=== PATIENT | male | born 1980 | race Caucasian/White ===

== ENCOUNTER 2021-01-20 21:24 | Emergency (ER) | payer SELFPAY ==
[2021-01-20 21:45] VITALS: BP 145/93; PULSE 93; RESP 20; TEMP 38.7; O2SAT 97; BMI 28.1
--- NOTE | 2021-01-20 22:09 | XRR_ITS ---
PROCEDURE INFORMATION: Exam: XR Chest Exam date and time: 01/20/2021 10:09 PM Age: 40 years old Clinical indication: Cough and fever; Additional info: Fever, cough TECHNIQUE: Imaging protocol: XR of the chest. Views: 1 view. COMPARISON: No relevant prior studies available. FINDINGS: Lungs: Lungs are clear bilaterally. Pleural spaces: No pleural effusion. No pneumothorax. Heart/Mediastinum: The cardiac silhouette and mediastinal contours are unremarkable. Bones/joints: Unremarkable for age. XR/XR chest 1V portable [id number] IMPRESSION: No acute cardiopulmonary process.
[2021-01-20 22:51] VITALS: BP 131/94; PULSE 91; RESP 17; TEMP 38.7; O2SAT 97
[2021-01-20 22:59] LABS: Basophils % 0.3 %; Eosinophils % 0.5 %; Hematocrit 48.3 % (42.0-52.0); Hemoglobin 16.1 g/dL (11.7-16.6); Lymphocytes # 1.5 10^3/uL (0.8-4.8); Lymphocytes % 22.3 %; Mean Corpuscular HGB Conc 33.3 g/dL (30.0-36.0); Mean Corpuscular Hemoglobin 28.7 pg (28.0-34.0); Mean Corpuscular Volume 86.1 fL (80-94); Mean Platelet Volume 10.3 fL (7.4-10.4); Monocytes # 0.9 10^3/uL (0.2-0.9); Monocytes % 13.6 %; Neutrophils # 4.19 10^3/uL (1.8-7.7); Neutrophils % 63.1 %; Nucleated Red Blood Cells % 0 %; Platelet Count 236 10^3/cmm (130-400); Red Blood Count 5.61 10^6/uL (4.1-5.3); Red Cell Distribution Width 12.2 % (12.1-15.1); White Blood Count 6.6 10^3/uL (4.0-10.0)
[2021-01-20 23:25] LABS: Fibrinogen 427 mg/dL (174-498)
[2021-01-20 23:39] LABS: Alanine Aminotransferase 99 U/L (0-41); Albumin Level 4.3 g/dL (3.5-5.2); Alkaline Phosphatase 75 IU/L (40-130); Aspartate Amino Transferase 55 U/L (0-40); Blood Urea Nitrogen 12 mg/dL (6-20); C Reactive Protein 9.6 mg/L (0.0-4.9); Calcium 8.2 mg/dL (8.5-10.5); Carbon Dioxide 19 mmol/L (22-29); Chloride 103 mmol/L (98-107); Globulin 3.1 g/dL (1.3-4.6); Glomerular Filtration Rate 126.2 mL/min (90-130); Glucose 97 mg/dL (65-115); Osmolality Calculated 280 mOsm/kg (285-295); Sodium 135 mmol/L (136-145); Total Bilirubin 0.9 mg/dL (0.15-1.2); Total Protein 7.4 g/dL (6.6-8.7)
--- NOTE | 2021-01-20 23:41 | ED_ITS ---
HPI - Fever General: Chief Complaint: Fever Stated Complaint: SOB, MOIST COUGH Time Seen by Provider: 01/20/21 21:57 Source: patient, family, RN notes reviewed and old records reviewed Mode of arrival: ambulatory Limitations: no limitations History of Present Illness: HPI Narrative: 40-year-old male with no significant past medical history presents to the emergency department with complaints of a fever, cough, body aches, nasal congestion, sore throat. Symptoms have been ongoing for about 7 days. He does not feel like he is getting any better so he is here to be evaluated. He denies any sick contacts and denies any contact with anyone that has had Covid. He has not had his Covid vaccination. MD elicited complaint: fever, malaise and weakness Onset (ago): day(s) (7) Exacerbating factors: nothing Relieving factors: nothing Associated symptoms: Reports chills, cough, headache(s), myalgias, nasal congestion, nausea and short of breath; Deny abdominal pain, flank pain, chest pain, confusion, diarrhea, dysuria, extremity pain, night sweats, rash, rhinorrhea, sinus pain, stiffness, sore throat, vaginal discharge, vomiting or weight loss Treatments prior to arrival fever: none Review of Systems General: Reports: 10 or more systems reviewed and unremarkable except in HPI and below Const: Reports: chills; Denies: night sweats ENMT: Reports: nasal congestion; Denies: sinus pain Card: Denies: chest pain GI: Reports: nausea; Denies: abdominal pain, vomiting or diarrhea : Denies: flank pain or dysuria Musc: Denies: extremity pain Neuro: Reports: headache(s); Denies: confusion Physical Exam Const: COMMON NORMALS: no acute distress, average body habitus, patient oriented x3, no limitations, healthy appearing, alert and well nourished HENMT: COMMON NORMALS: normocephalic, atraumatic and moist oral mucous m embranes HEAD & SCALP: normocephalic and atraumatic Neck/C-Spine: COMMON NORMALS: no meningeal signs and no JVD Resp: COMMON NORMALS: normal respiratory effort, No retractions, No use of accessory muscles, clear to auscultation bilaterally and percussion normal AUSCULTATION: clear to auscultation bilaterally PERCUSSION: percussion normal Cardio: COMMON NORMALS: no JVD, regular rate, regular rhythm, S1 normal heart sound present, S2 normal heart sound present, No gallops present (Cardio), No clicks present (Cardio), No murmurs present (Cardio), No rub (Cardio) and Peripheral pulses 2+ throughout RATE: regular rate RHYTHM: regular rhythm HEART SOUNDS: S1 normal heart sound present and S2 normal heart sound present PERIPHERAL PULSES: Peripheral pulses 2+ throughout GI: COMMON NORMALS: Normal to inspection, nondistended, normoactive bowel sounds present, Soft to palpation, non-tender, No hepatosplenomegaly present, no masses and no bruits PALPATION: Yes Soft to palpation and Yes No hepatosplenomegaly present Extremity: COMMON NORMALS: normal to inspection, full ROM, capillary refill normal, no calf tenderness and no pedal edema Neuro: COMMON NORMALS: patient oriented x3 SENSORIUM/ORIENTATION: Yes alert MENINGEAL SIGNS: Yes no meningeal signs Skin: COMMON NORMALS: no rashes or lesions noted, no wounds, turgor normal, no jaundice, no petechiae and no mottling GENERAL SKIN EXAM: no rashes or lesions noted and turgor normal Course Reevaluation(s): Reevaluation #1: Discussed his lab and imaging findings with him. He tested positive for COVID-19. Labs otherwise unremarkable. CXR negative for infiltrate. He does not meet criteria for monoclonal antibody infusion. Will discharge him home on conservative measures and he is to self quarantine for at least 10 days from symptoms onset and at least 24 hours fever- free with no antipyretics. He voiced understanding and all questions answered. Time: 00:05 Vital Signs: Vital signs: Vital Signs Temperature 101.6 F H 01/20/21 22:51 Pulse Rate 90 01/21/21 00:16 Respiratory Rate 20 H 01/21/21 00:16 Blood Pressure 136/87 01/21/21 00:16 Pulse Oximetry 95 01/21/21 00:16 MDM - Fever MDM Narrative: Medical decision making narrative: 40 year old male who presents to the ED with covid symptoms including fever, cough, myalgias. He tested positive for COVID-19, however inflammatory markers only midly elevated and is not hypoxic or requiring oxygen. CXR negative. Does not meet criteria for monoclonal antibody infusion. He is discharged home on conservative measures. Medical Records: Attestation: I reviewed the patient's medical records. Lab Data: Attestation: I reviewed the patient's lab results. Labs: Lab Results 01/20/21 01/20/21 01/20/21 Range/Units 22:37 22:37 22:37 WBC 6.6 (4.0-10.0) 10^3/ uL RBC 5.61 H (4.1-5.3) 10^6/u L Hgb 16.1 (11.7-16.6) g/dL Hct 48.3 (42.0-52.0) % MCV 86.1 (80-94) fL MCH 28.7 (28.0-34.0) pg MCHC 33.3 (30.0-36.0) g/dL RDW 12.2 (12.1-15.1) % Plt Count 236 (130-400) 10^3/c mm MPV 10.3 (7.4-10.4) fL Neut % (Auto) 63.1 % Lymph % (Auto) 22.3 % [place] % (Auto) 13.6 % Eos % (Auto) 0.5 % Baso % (Auto) 0.3 % Neut # (Auto) 4.19 (1.8-7.7) 10^3/u L Lymph # (Auto) 1.5 (0.8-4.8) 10^3/u L [place] # (Auto) 0.9 (0.2-0.9) 10^3/u L Eos # (Auto) 0.0 (0.0-0.8) 10^3/u L Baso # (Auto) 0.0 (0.0-0.1) 10^3/u L Nucleated RBC % (a uto) 0 % Nucleated RBCs # 0.0 /100WBC Fibrinogen 427 (174-498) mg/dL Sodium 135 L (136-145) mmol/L Potassium 3.6 (3.5-5.1) mmol/L Chloride 103 (98-107) mmol/L Carbon Dioxide 19 L (22-29) mmol/L Anion Gap 16.6 (5-19) BUN 12 (6-20) mg/dL Creatinine 0.7 (0.7-1.2) mg/dL GFR Calculation 126.2 (90-130) mL/min Glucose 97 (65-115) mg/dL Calculated Osmolal ity 280 L (285-295) mOsm/k g Lactic Acid (0.5-2.2) mmol/L Calcium 8.2 L (8.5-10.5) mg/dL Total Bilirubin 0.9 (0.15-1.2) mg/dL AST 55 H (0-40) U/L ALT 99 H (0-41) U/L Alkaline Phosphata se 75 (40-130) IU/L C-Reactive Protein 9.6 H (0.0-4.9) mg/L Total Protein 7.4 (6.6-8.7) g/dL Albumin 4.3 (3.5-5.2) g/dL Globulin 3.1 (1.3-4.6) g/dL Procalcitonin 0.10 (0-0.5) ng/mL SARS-CoV-2 Ag (Rap id) (Negative) 01/20/21 01/20/21 Range/Units 22:37 22:42 WBC (4.0-10.0) 10^3/ uL RBC (4.1-5.3) 10^6/u L Hgb (11.7-16.6) g/dL Hct (42.0-52.0) % MCV (80-94) fL MCH (28.0-34.0) pg MCHC (30.0-36.0) g/dL RDW (12.1-15.1) % Plt Count (130-400) 10^3/c mm MPV (7.4-10.4) fL Neut % (Auto) % Lymph % (Auto) % [place] % (Auto) % Eos % (Auto) % Baso % (Auto) % Neut # (Auto) (1.8-7.7) 10^3/u L Lymph # (Auto) (0.8-4.8) 10^3/u L [place] # (Auto) (0.2-0.9) 10^3/u L Eos # (Auto) (0.0-0.8) 10^3/u L Baso # (Auto) (0.0-0.1) 10^3/u L Nucleated RBC % (a uto) % Nucleated RBCs # /100WBC Fibrinogen (174-498) mg/dL Sodium (136-145) mmol/L Potassium (3.5-5.1) mmol/L Chloride (98-107) mmol/L Carbon Dioxide (22-29) mmol/L Anion Gap (5-19) BUN (6-20) mg/dL Creatinine (0.7-1.2) mg/dL GFR Calculation (90-130) mL/min Glucose (65-115) mg/dL Calculated Osmolal ity (285-295) mOsm/k g Lactic Acid 1.0 (0.5-2.2) mmol/L Calcium (8.5-10.5) mg/dL Total Bilirubin (0.15-1.2) mg/dL AST (0-40) U/L ALT (0-41) U/L Alkaline Phosphata se (40-130) IU/L C-Reactive Protein (0.0-4.9) mg/L Total Protein (6.6-8.7) g/dL Albumin (3.5-5.2) g/dL Globulin (1.3-4.6) g/dL Procalcitonin (0-0.5) ng/mL SARS-CoV-2 Ag (Rap id) Positive H (Negative) Imaging Data^: CXR: Attestation: I personally reviewed and interpreted this imaging study as follows: Radiologist's impression: [address] [id number] ReportSigned Patient: Facundo Cohen #: [id number]: [id number]#:[id number]/Sex: 40 / MADM Date: 01/20/21Loc: ERRoom/Bed:Attending Dr: Ordering Provider/Ordering MD: Melanie Ruiz MD, [facility] Date of Service: 01/20/21 Procedure(s): XR chest 1V portable [id number] Accession Number(s): [id number] Report Number: [id number] PROCEDURE INFORMATION: Exam: XR Chest Exam date and time: 01/20/2021 10:09 PM Age: 40 years old Clinical indication: Cough and fever; Additional info: Fever, cough TECHNIQUE: Imaging protocol: XR of the chest. Views: 1 view. COMPARISON: No relevant prior studies available. FINDINGS: Lungs: Lungs are clear bilaterally. Pleural spaces: No pleural effusion. No pneumothorax. Heart/Mediastinum: The cardiac silhouette and mediastinal contours are unremarkable. Bones/joints: Unremarkable for age. XR/XR chest 1V portable [id number] IMPRESSION: No acute cardiopulmonary process. Dictated By:Ksenia Morrell MDSigned By:Ksenia Morrell MDSigned Date/Time:01/20/21 8864 Discharge Plan Discharge Patient Disposition: Home Clinical Impression: COVID-19 Condition: Stable Discharge Orders: Discharge ED (Routine); Ordered 01/21/21 Ordered By: Melanie Ruiz Discharge Diet: Usual diet Discharge Activity: Increase activity as tolerated Activity Restrictions/Additional Instructions: Return for any new or worsening symptoms. Follow-up with your primary care provider within 3 days via telemedicine. Monitor your oxygen saturation using the pulse oximeter that was sent with you. If your oxygen levels drop below 90% and stay below 90% then you need to return to be evaluated. Drink plenty of fluids to keep well-hydrated. You need to self isolate for 10 days from when your symptoms started and be fever free for at least 24 hours without taking medicines for fever. Coding Level of Care Code ED Cushion Builder for Faustino Guzmán Exam Comprehensive
[2021-01-20 23:52] LABS: Anion Gap 16.6 (5-19); Potassium 3.6 mmol/L (3.5-5.1)
[2021-01-20 23:56] LABS: SARS Covid-2 Antigen Positive (Negative)
[2021-01-21 00:16] VITALS: BP 136/87; PULSE 90; RESP 20; O2SAT 95
== END 2021-01-21 00:17 | disposition home or self-care (01) ==
PROVIDERS: Emergency Provider Family Medicine
DX: U07.1 COVID-19 (principal)
CPT/HCPCS: 71045; 80053; 83605; 84145; 85025; 85384; 86140; 87426; 99283

== ENCOUNTER 2021-01-25 15:07 | Emergency (ER) | payer SELFPAY ==
--- NOTE | 2021-01-25 15:36 | XRR_ITS ---
PROCEDURE INFORMATION: Exam: XR Chest Exam date and time: 01/25/2021 3:36 PM Age: 40 years old Clinical indication: Shortness of breath; Additional info: Covid, short of breath TECHNIQUE: Imaging protocol: XR of the chest. Views: 1 view. COMPARISON: CR (CHEST, ) 01/20/2021 10:52 PM FINDINGS: Lungs: Patchy poorly defined airspace opacities in the lateral left lung. Decreased lung volumes. Mildly conspicuous pulmonary interstitium. Pleural spaces: Unremarkable. No pleural effusion. No pneumothorax. Heart/Mediastinum: Unremarkable. No cardiomegaly. Bones/joints: Unremarkable. XR/XR chest 1V portable [id number] IMPRESSION: Patchy airspace disease primarily peripheral aspect of the left lung consistent with atypical pneumonia such as COVID-19 pneumonia.
[2021-01-25 15:50] VITALS: BP 125/88; PULSE 130; RESP 17; TEMP 39.3; O2SAT 96; BMI 29.0
[2021-01-25 21:35] LABS: Basophils % 0.2 %; Hematocrit 50.8 % (42.0-52.0); Hemoglobin 17.4 g/dL (11.7-16.6); Lymphocytes # 1.3 10^3/uL (0.8-4.8); Lymphocytes % 16.4 %; Mean Corpuscular HGB Conc 34.3 g/dL (30.0-36.0); Mean Corpuscular Hemoglobin 28.5 pg (28.0-34.0); Mean Corpuscular Volume 83.1 fL (80-94); Mean Platelet Volume 10.2 fL (7.4-10.4); Monocytes # 0.6 10^3/uL (0.2-0.9); Monocytes % 7.1 %; Neutrophils # 6.17 10^3/uL (1.8-7.7); Neutrophils % 76.1 %; Nucleated Red Blood Cells % 0 %; Platelet Count 175 10^3/cmm (130-400); Red Blood Count 6.11 10^6/uL (4.1-5.3); Red Cell Distribution Width 11.9 % (12.1-15.1); White Blood Count 8.1 10^3/uL (4.0-10.0)
[2021-01-25] MEDS: ondansetron 2 mg/ML SDV 2 mL 4 MG IVP (21:38)
[2021-01-25] MEDS: sodium chloride 0.9% 1,000 ML 999 ML IV (21:39)
[2021-01-25] MEDS: acetaminophen 500 mg Tablet 1000 MG PO (21:39)
[2021-01-25 22:18] LABS: Alanine Aminotransferase 59 U/L (0-41); Albumin Level 4.2 g/dL (3.5-5.2); Alkaline Phosphatase 71 IU/L (40-130); Anion Gap 20.7 (5-19); Aspartate Amino Transferase 54 U/L (0-40); Blood Urea Nitrogen 16 mg/dL (6-20); Calcium 8.5 mg/dL (8.5-10.5); Carbon Dioxide 19 mmol/L (22-29); Chloride 99 mmol/L (98-107); Globulin 3.6 g/dL (1.3-4.6); Glomerular Filtration Rate 126.2 mL/min (90-130); Glucose 99 mg/dL (65-115); Lipase 42 U/L (13-60); Osmolality Calculated 281 mOsm/kg (285-295); Potassium 3.7 mmol/L (3.5-5.1); Sodium 135 mmol/L (136-145); Total Bilirubin 0.8 mg/dL (0.15-1.2); Total Protein 7.8 g/dL (6.6-8.7)
[2021-01-25 22:21] LABS: Lactic Sepsis W/Reflex 1.8 mmol/L (0.5-2.2)
[2021-01-25 23:29] LABS: Urine Appearance Clear (CLEAR); Urine Color Yellow (Yellow); pH Urine 5 (5-7)
[2021-01-25 23:30] LABS: Add Urine Microscopic? YES; Bilirubin Urine Neg (Negative); Blood Urine 3+ (Negative); Glucose Urine UA Norm (Normal); Ketones Urine 2+ (Negative); Leukocyte Esterase Urine Negative (Negative); Nitrate Urine Negative (Negative); Protein Urine 3+ (Negative); Urobilinogen Urine Norm (Negative)
[2021-01-25 23:36] LABS: Add Urine Culture? Yes; Bacteria Urine 2+ /hpf; Hyaline Casts Urine 0-4 /lpf; Mucus Urine 3+ /hpf; RBC Urine 50-80 /hpf (0-2); Squamous Epithelial Cell Urine 0-4 /hpf (0-5); WBC Urine 0-4 /hpf (0-5)
--- NOTE | 2021-01-25 23:41 | CTR_ITS ---
PROCEDURE INFORMATION: Exam: CT Abdomen And Pelvis With Contrast Exam date and time: 01/25/2021 11:41 PM Age: 40 years old Clinical indication: Nausea and vomiting; Abdominal pain; Generalized; Patient HX: Abd pain with n/v/d. ; Additional info: Hematuria TECHNIQUE: Imaging protocol: Computed tomography of the abdomen and pelvis with contrast. Radiation optimization: All CT scans at this facility use at least one of these dose optimization techniques: automated exposure control; mA and/or kV adjustment per patient size (includes targeted exams where dose is matched to clinical indication); or iterative reconstruction. Contrast material: OMNI 300; Contrast volume: 95 ml; Contrast route: INTRAVENOUS (IV); COMPARISON: CR (CHEST, ) 01/25/2021 4:53 PM RADIATION DOSE METRICS: Total DLP (mGy-cm): 1648.11 FINDINGS: Lungs: Hazy bilateral pulmonary opacities which are consistent with COVID-19. Liver: Liver is normal. Gallbladder and bile ducts: Gallbladder is normal. Pancreas: Pancreas is normal. Spleen: Spleen is normal. Adrenal glands: Adrenals are normal. Kidneys and ureters: There is a focus of decreased attenuation in the left renal cortex which is suspicious for pyelonephritis. 2 mm nonobstructing left renal pelvis stone. Stomach and bowel: Unremarkable. No obstruction. No mucosal thickening. Appendix: No evidence of appendicitis. Intraperitoneal space: Unremarkable. No free air. No significant fluid collection. Vasculature: Unremarkable. No abdominal aortic aneurysm. Lymph nodes: Unremarkable. No enlarged lymph nodes. Urinary bladder: Unremarkable as visualized. Reproductive: Unremarkable as visualized. Bones/joints: Unremarkable. No acute fracture. Soft tissues: Unremarkable. CT/CT abdomen pelvis w con* [id number] IMPRESSION: 1. Hazy bilateral pulmonary opacities which are consistent with COVID-19. 2. There is a focus of decreased attenuation in the left renal cortex which is suspicious for pyelonephritis. COMMENTS: Consistent with the [employer]'s Incidental Findings Committee white paper (J Am Efren Radiol 2018): Any incidental renal lesion less than 1 cm or classified as too small to characterize, or any incidental cystic renal lesion characterized as simple-appearing, is likely benign. No follow-up imaging is recommended for these lesions per consensus recommendations based on imaging criteria. Radiation Dose CTDIVOL = (mGy): DLP = 1648.11 (mGy-cm)
[2021-01-25] MEDS: dexamethasone 10 mg/mL INJ 6 MG IVP (23:52)
[2021-01-25] MEDS: azithromycin 250 mg Tablet 500 MG PO (23:53)
--- NOTE | 2021-01-26 | ED_ITS ---
Documented by User: Henrry Paulino MD 01/26/21 11:07 HPI - Nausea/Vomiting/Diarrhea General: Chief complaint: Nausea/Vomiting/Diarrhea Stated complaint: COVID +: N/V/D, NO INTAKE X 2 DAYS Time Seen by Provider: 01/25/21 20:59 History of Present Illness: HPI Narrative: The patient is a 40-year-old male who comes to the ER complaining of nausea and vomiting and diarrhea for the past 5 days. He was diagnosed with Covid on the . He says he has not been keeping anything down for at least 2 days. Admits mild shortness of breath but no other Covid symptoms at this time. His worst complaint is the vomiting and dehydration. Temperature 102.7 in the ED. Heart rate 130. MD elicited complaint: nausea, vomiting and abdominal pain Associated nausea: Yes Associated symtoms: Reports fatigue and nausea; Denies anxiety, change in vision, chest pain, dizziness, headache(s) or palpitations Review of Systems General: Reports: 10 or more systems reviewed and unremarkable except in HPI and below Const: Reports: fever(s) and fatigue Eyes: Denies: change in vision, blurry vision or eye redness ENMT: Denies: throat pain, swelling of lips/tongue, ear or mastoid pain or nasal congestion Card: Denies: chest pain, palpitations, irregular heart rhythm, edema, dyspnea on exertion or orthopnea Resp: Denies: dyspnea, productive cough or non-productive cough GI: Reports: abdominal pain, nausea and vomiting; Denies: diarrhea or GI cramping : Denies: flank pain, urinary frequency or urinary urgency Musc: Denies: neck pain, back pain, extremity pain, joint pain, joint redness, limited range of motion or muscle weakness Skin/Breast: Denies: rash, pruritus, erythema, skin pain or skin tenderness Neuro: Denies: headache(s), numbness in extremities, weakness in extremities, sensory changes, difficulty walking, dizziness, confusion or Slurred speech present Psych: Denies: anxiety or depression Endo: Denies: polyuria All/Imm: Denies: urticaria, throat swelling or tongue swelling Physical Exam Const: COMMON NORMALS: patient oriented x3 and alert GENERAL APPEARANCE: well kempt and other (Dehydrated, tachycardic, febrile) ORIENTATION/CONSCIOUSNESS: Yes oriented to person, Yes oriented to place and Yes oriented to time HENMT: COMMON NORMALS: normocephalic, external ears normal and Normal external nose present HEAD & SCALP: normal to inspection and normocephalic NOSE: Normal external nose present EXTERNAL EAR: Yes external ears normal MOUTH: Normal oral and palatal mucosa present THROAT: posterior oropharynx normal Eye: COMMON NORMALS: Equal, round and reactive pupils present and EOMs intact bilaterally GENERAL EYE: appearance normal, both eyes and all related structures PUPIL: Yes Equal, round and reactive pupils present Neck/C-Spine: COMMON NORMALS: full ROM, no lymphadenopathy, no meningeal signs and no JVD GENERAL: Yes normal visual inspection Lymph: LYMPHATIC: no lymphadenopathy noted Chest: COMMONS NORMALS: normal inspection of the chest and normal palpation of entire chest wall Resp: COMMON NORMALS: normal respiratory effort, No retractions, No use of accessory muscles, clear to auscultation bilaterally and percussion normal EFFORT & INSPECTION: Yes able to speak in complete sentences AUSCULTATION: clear to auscultation bilaterally PERCUSSION: percussion normal Cardio: COMMON NORMALS: no JVD, regular rhythm, S1 normal heart sound present, S2 normal heart sound present and Peripheral pulses 2+ throughout RATE: tachycardic RHYTHM: regular rhythm HEART SOUNDS: S1 normal heart sound present and S2 normal heart sound present PERIPHERAL PULSES: Peripheral pulses 2+ throughout GI: COMMON NORMALS: Normal to inspection, nondistended, normoactive bowel sounds present, Soft to palpation and no masses INSPECTION: Yes normal to inspection PALPATION: Yes Soft to palpation OTHER: Mild diffuse abdominal tenderness. No rebound tenderness. Possibly muscular from vomiting the past couple days however unknown. : COMMON NORMALS: Yes no CVA tenderness BLADDER/KIDNEY EXAM: Yes no CVA tenderness Back/Pelvis: COMMON NORMALS: no CVA tenderness, thoracic and lumbar spine normal to inspection, no thoracic nor lumbar tenderness and thoraco-lumbar ROM normal Extremity: COMMON NORMALS: normal to inspection, full ROM, capillary refill normal, no joint enlargement and no pedal edema GENERAL: Yes normal exam except as noted Neuro: COMMON NORMALS: patient oriented x3, CN's II-XII intact bilaterally, moves all extremities, no focal motor deficits, no sensory deficits noted and gait normal SENSORIUM/ORIENTATION: Yes alert, Yes oriented to person, Yes oriented to place and Yes oriented to time MENINGEAL SIGNS: Yes no meningeal signs Psych: COMMON NORMALS: mental status grossly normal, Normal thought process present, cooperative, normal affect and speech normal APPEARANCE: Yes well kempt ATTITUDE: Yes calm SPEECH: Yes normal speech THOUGHT PROCESS: Normal thought process present Skin: COMMON NORMALS: no rashes or lesions noted GENERAL SKIN EXAM: no rashes or lesions noted Course Vital Signs: Vital signs: Vital Signs Temperature 99.2 F 01/26/21 02:57 Pulse Rate 72 01/26/21 02:57 Respiratory Rate 18 01/26/21 02:57 Blood Pressure 118/73 01/26/21 02:57 Pulse Oximetry 97 01/26/21 02:57 MDM - Nausea/Vomiting/Diarrhea MDM Narrative: Medical decision making narrative: The patient is a 40-year-old male who comes to the ER complaining of nausea and vomiting significantly over the past couple days. He was diagnosed with Covid on the . He also complains of abdominal pain and mild shortness of breath. He is satting well on room air and from a respiratory perspective he is doing quite well. Chest x-ray does show Covid pneumonia. He has not had steroids or antibiotics so he was given azithromycin, and dexamethasone in the ED as well as 2 L IV fluids, and Zofran, and Tylenol. His symptoms dramatically improved after hydration. Lab Data: Labs: Lab Results 01/25/21 01/25/21 01/25/21 Range/Units 21:25 21:25 21:25 WBC 8.1 (4.0-10.0) 10^3/ uL RBC 6.11 H (4.1-5.3) 10^6/u L Hgb 17.4 H (11.7-16.6) g/dL Hct 50.8 (42.0-52.0) % MCV 83.1 (80-94) fL MCH 28.5 (28.0-34.0) pg MCHC 34.3 (30.0-36.0) g/dL RDW 11.9 L (12.1-15.1) % Plt Count 175 (130-400) 10^3/c mm MPV 10.2 (7.4-10.4) fL Neut % (Auto) 76.1 % Lymph % (Auto) 16.4 % Ponce % (Auto) 7.1 % Eos % (Auto) 0.0 % Baso % (Auto) 0.2 % Neut # (Auto) 6.17 (1.8-7.7) 10^3/u L Lymph # (Auto) 1.3 (0.8-4.8) 10^3/u L Ponce # (Auto) 0.6 (0.2-0.9) 10^3/u L Eos # (Auto) 0.0 (0.0-0.8) 10^3/u L Baso # (Auto) 0.0 (0.0-0.1) 10^3/u L Nucleated RBC % (a uto) 0 % Nucleated RBCs # 0.0 /100WBC Sodium 135 L (136-145) mmol/L Potassium 3.7 (3.5-5.1) mmol/L Chloride 99 (98-107) mmol/L Carbon Dioxide 19 L (22-29) mmol/L Anion Gap 20.7 H (5-19) BUN 16 (6-20) mg/dL Creatinine 0.7 (0.7-1.2) mg/dL GFR Calculation 126.2 (90-130) mL/min Glucose 99 (65-115) mg/dL Calculated Osmolal ity 281 L (285-295) mOsm/k g Lactic Acid (0.5-2.2) mmol/L Calcium 8.5 (8.5-10.5) mg/dL Total Bilirubin 0.8 (0.15-1.2) mg/dL AST 54 H (0-40) U/L ALT 59 H (0-41) U/L Alkaline Phosphata se 71 (40-130) IU/L Total Protein 7.8 (6.6-8.7) g/dL Albumin 4.2 (3.5-5.2) g/dL Globulin 3.6 (1.3-4.6) g/dL Lipase 42 (13-60) U/L Urine Color (Yellow) Urine Appearance (CLEAR) Urine pH (5-7) Ur Specific Gravit y (1.005-1.030) Urine Protein (Negative) Urine Glucose (UA) (Normal) Urine Ketones (Negative) Urine Blood (Negative) Urine Nitrate (Negative) Urine Bilirubin (Negative) Urine Urobilinogen (Negative) mg/dL Ur Leukocyte Celia ase (Negative) Urine RBC (0-2) /hpf Urine WBC (0-5) /hpf Ur Squamous Epith Cells (0-5) /hpf Amorphous Sediment Urine Bacteria (NONE) /hpf Hyaline Casts /lpf Urine Mucus /hpf 01/25/21 01/25/21 Range/Units 21:35 23:15 WBC (4.0-10.0) 10^3/ uL RBC (4.1-5.3) 10^6/u L Hgb (11.7-16.6) g/dL Hct (42.0-52.0) % MCV (80-94) fL MCH (28.0-34.0) pg MCHC (30.0-36.0) g/dL RDW (12.1-15.1) % Plt Count (130-400) 10^3/c mm MPV (7.4-10.4) fL Neut % (Auto) % Lymph % (Auto) % Ponce % (Auto) % Eos % (Auto) % Baso % (Auto) % Neut # (Auto) (1.8-7.7) 10^3/u L Lymph # (Auto) (0.8-4.8) 10^3/u L Ponce # (Auto) (0.2-0.9) 10^3/u L Eos # (Auto) (0.0-0.8) 10^3/u L Baso # (Auto) (0.0-0.1) 10^3/u L Nucleated RBC % (a uto) % Nucleated RBCs # /100WBC Sodium (136-145) mmol/L Potassium (3.5-5.1) mmol/L Chloride (98-107) mmol/L Carbon Dioxide (22-29) mmol/L Anion Gap (5-19) BUN (6-20) mg/dL Creatinine (0.7-1.2) mg/dL GFR Calculation (90-130) mL/min Glucose (65-115) mg/dL Calculated Osmolal ity (285-295) mOsm/k g Lactic Acid 1.8 (0.5-2.2) mmol/L Calcium (8.5-10.5) mg/dL Total Bilirubin (0.15-1.2) mg/dL AST (0-40) U/L ALT (0-41) U/L Alkaline Phosphata se (40-130) IU/L Total Protein (6.6-8.7) g/dL Albumin (3.5-5.2) g/dL Globulin (1.3-4.6) g/dL Lipase (13-60) U/L Urine Color Yellow (Yellow) Urine Appearance Clear (CLEAR) Urine pH 5 (5-7) Ur Specific Gravit y 1.020 (1.005-1.030) Urine Protein 3+ H (Negative) Urine Glucose (UA) Norm (Normal) Urine Ketones 2+ H (Negative) Urine Blood 3+ H (Negative) Urine Nitrate Negative (Negative) Urine Bilirubin Neg (Negative) Urine Urobilinogen Norm (Negative) mg/dL Ur Leukocyte Celia ase Negative (Negative) Urine RBC 50-80 H (0-2) /hpf Urine WBC 0-4 H (0-5) /hpf Ur Squamous Epith Cells 0-4 H (0-5) /hpf Amorphous Sediment Not Reportable Urine Bacteria 2+ H (NONE) /hpf Hyaline Casts 0-4 H /lpf Urine Mucus 3+ /hpf Discharge Plan Discharge Patient Disposition: Home Clinical Impression: COVID-19, Gastroenteritis Condition: Stable Prescriptions: New azithromycin 250 mg tablet 250 mg PO DAILY 4 Days Qty: 4 RF: 0 Zofran 4 mg tablet 4 mg PO Q8H PRN (Reason: Nausea And Vomiting) 5 Days Qty: 15 RF: 0 Medrol (Timo) 4 mg tablets,dose pack See Rx Instructions .ROUTE .COMPLEX Qty: 21 RF: 0 albuterol sulfate 90 mcg/actuation HFA aerosol inhaler 2 inh inhalation Q6H PRN (Reason: shortness of breath or wheezing) 30 Days RF: 0 No Action Vicks NyQuil 12.3-86-72-1000 mg Packet See Rx Instructions .ROUTE .COMPLEX RF: 0 Tylenol Extra Strength 500 mg Tablet 500 - 1,000 mg PO Q6H PRN (Reason: PAIN/FEVER) RF: 0 Mucinex 1,200 mg Tablet Extended Release 12hr 1,200 mg PO BID RF: 0 Discharge Orders: Discharge ED (Routine); Ordered 01/26/21 Ordered By: Carlitos Lopez Discharge Diet: Advance as tolerated Patient Instructions: Gastroenteritis (ED), Opioid Safety, Upper Respiratory Infection - Adult Activity Restrictions/Additional Instructions: You have been suffering from Covid and have had significant nausea and vomiting over the past couple days. We have given you IV fluids and you have improved a good amount. Please use the Zofran to help with your nausea and drink lots of fluids. Also by pulse oximeter at [facility] and monitor your oxygen levels frequently and at anytime you are feeling short of breath. If it dips to 90% please return to the ER immediately. Also return to the ER with any worsening or worrisome symptoms or if your fever does not go away. Follow-up with a primary care physician in a couple days to monitor improvement of your symptoms. Coding Level of Care Code ED Stitch Bonding Machine Drawer In for Chg Fwd Exam Comprehensive Documented by User: Carlitos Lopez, 01/26/21 07:05 HPI - Nausea/Vomiting/Diarrhea General: Chief complaint: Nausea/Vomiting/Diarrhea Stated complaint: COVID +: N/V/D, NO INTAKE X 2 DAYS Time Seen by Provider: 01/25/21 20:59 Course Vital Signs: Vital signs: Vital Signs Temperature 99.2 F 01/26/21 02:57 Pulse Rate 72 01/26/21 02:57 Respiratory Rate 18 01/26/21 02:57 Blood Pressure 118/73 01/26/21 02:57 Pulse Oximetry 97 01/26/21 02:57 MDM - Nausea/Vomiting/Diarrhea MDM Narrative: Medical decision making narrative: 40-year-old male with COVID- 19 checked out to me by Dr. West at shift change. This gentleman has normal vitals. He looks much improved after fluid bolus he is feeling better as well. He did have hematuria on urinalysis, without evidence of infection. There is some concern for pyelonephritis of the left kidney on CT scanning. No evidence of bacterial infection though. Will allow patient home for symptomatic treatment of COVID-19. Lab Data: Labs: Lab Results 01/25/21 01/25/21 01/25/21 Range/Units 21:25 21:25 21:25 WBC 8.1 (4.0-10.0) 10^3/ uL RBC 6.11 H (4.1-5.3) 10^6/u L Hgb 17.4 H (11.7-16.6) g/dL Hct 50.8 (42.0-52.0) % MCV 83.1 (80-94) fL MCH 28.5 (28.0-34.0) pg MCHC 34.3 (30.0-36.0) g/dL RDW 11.9 L (12.1-15.1) % Plt Count 175 (130-400) 10^3/c mm MPV 10.2 (7.4-10.4) fL Neut % (Auto) 76.1 % Lymph % (Auto) 16.4 % Ponce % (Auto) 7.1 % Eos % (Auto) 0.0 % Baso % (Auto) 0.2 % Neut # (Auto) 6.17 (1.8-7.7) 10^3/u L Lymph # (Auto) 1.3 (0.8-4.8) 10^3/u L Ponce # (Auto) 0.6 (0.2-0.9) 10^3/u L Eos # (Auto) 0.0 (0.0-0.8) 10^3/u L Baso # (Auto) 0.0 (0.0-0.1) 10^3/u L Nucleated RBC % (a uto) 0 % Nucleated RBCs # 0.0 /100WBC Sodium 135 L (136-145) mmol/L Potassium 3.7 (3.5-5.1) mmol/L Chloride 99 (98-107) mmol/L Carbon Dioxide 19 L (22-29) mmol/L Anion Gap 20.7 H (5-19) BUN 16 (6-20) mg/dL Creatinine 0.7 (0.7-1.2) mg/dL GFR Calculation 126.2 (90-130) mL/min Glucose 99 (65-115) mg/dL Calculated Osmolal ity 281 L (285-295) mOsm/k g Lactic Acid (0.5-2.2) mmol/L Calcium 8.5 (8.5-10.5) mg/dL Total Bilirubin 0.8 (0.15-1.2) mg/dL AST 54 H (0-40) U/L ALT 59 H (0-41) U/L Alkaline Phosphata se 71 (40-130) IU/L Total Protein 7.8 (6.6-8.7) g/dL Albumin 4.2 (3.5-5.2) g/dL Globulin 3.6 (1.3-4.6) g/dL Lipase 42 (13-60) U/L Urine Color (Yellow) Urine Appearance (CLEAR) Urine pH (5-7) Ur Specific Gravit y (1.005-1.030) Urine Protein (Negative) Urine Glucose (UA) (Normal) Urine Ketones (Negative) Urine Blood (Negative) Urine Nitrate (Negative) Urine Bilirubin (Negative) Urine Urobilinogen (Negative) mg/dL Ur Leukocyte Celia ase (Negative) Urine RBC (0-2) /hpf Urine WBC (0-5) /hpf Ur Squamous Epith Cells (0-5) /hpf Amorphous Sediment Urine Bacteria (NONE) /hpf Hyaline Casts /lpf Urine Mucus /hpf 01/25/21 01/25/21 Range/Units 21:35 23:15 WBC (4.0-10.0) 10^3/ uL RBC (4.1-5.3) 10^6/u L Hgb (11.7-16.6) g/dL Hct (42.0-52.0) % MCV (80-94) fL MCH (28.0-34.0) pg MCHC (30.0-36.0) g/dL RDW (12.1-15.1) % Plt Count (130-400) 10^3/c mm MPV (7.4-10.4) fL Neut % (Auto) % Lymph % (Auto) % Ponce % (Auto) % Eos % (Auto) % Baso % (Auto) % Neut # (Auto) (1.8-7.7) 10^3/u L Lymph # (Auto) (0.8-4.8) 10^3/u L Ponce # (Auto) (0.2-0.9) 10^3/u L Eos # (Auto) (0.0-0.8) 10^3/u L Baso # (Auto) (0.0-0.1) 10^3/u L Nucleated RBC % (a uto) % Nucleated RBCs # /100WBC Sodium (136-145) mmol/L Potassium (3.5-5.1) mmol/L Chloride (98-107) mmol/L Carbon Dioxide (22-29) mmol/L Anion Gap (5-19) BUN (6-20) mg/dL Creatinine (0.7-1.2) mg/dL GFR Calculation (90-130) mL/min Glucose (65-115) mg/dL Calculated Osmolal ity (285-295) mOsm/k g Lactic Acid 1.8 (0.5-2.2) mmol/L Calcium (8.5-10.5) mg/dL Total Bilirubin (0.15-1.2) mg/dL AST (0-40) U/L ALT (0-41) U/L Alkaline Phosphata se (40-130) IU/L Total Protein (6.6-8.7) g/dL Albumin (3.5-5.2) g/dL Globulin (1.3-4.6) g/dL Lipase (13-60) U/L Urine Color Yellow (Yellow) Urine Appearance Clear (CLEAR) Urine pH 5 (5-7) Ur Specific Gravit y 1.020 (1.005-1.030) Urine Protein 3+ H (Negative) Urine Glucose (UA) Norm (Normal) Urine Ketones 2+ H (Negative) Urine Blood 3+ H (Negative) Urine Nitrate Negative (Negative) Urine Bilirubin Neg (Negative) Urine Urobilinogen Norm (Negative) mg/dL Ur Leukocyte Celia ase Negative (Negative) Urine RBC 50-80 H (0-2) /hpf Urine WBC 0-4 H (0-5) /hpf Ur Squamous Epith Cells 0-4 H (0-5) /hpf Amorphous Sediment Not Reportable Urine Bacteria 2+ H (NONE) /hpf Hyaline Casts 0-4 H /lpf Urine Mucus 3+ /hpf Discharge Plan Discharge Patient Disposition: Home Clinical Impression: COVID-19, Gastroenteritis Condition: Stable Prescriptions: New azithromycin 250 mg tablet 250 mg PO DAILY 4 Days Qty: 4 RF: 0 Zofran 4 mg tablet 4 mg PO Q8H PRN (Reason: Nausea And Vomiting) 5 Days Qty: 15 RF: 0 Medrol (Timo) 4 mg tablets,dose pack See Rx Instructions .ROUTE .COMPLEX Qty: 21 RF: 0 albuterol sulfate 90 mcg/actuation HFA aerosol inhaler 2 inh inhalation Q6H PRN (Reason: shortness of breath or wheezing) 30 Days RF: 0 No Action Miguel Angel DiazQuil 12.8-17-39-1000 mg Packet See Rx Instructions .ROUTE .COMPLEX RF: 0 Tylenol Extra Strength 500 mg Tablet 500 - 1,000 mg PO Q6H PRN (Reason: PAIN/FEVER) RF: 0 Mucinex 1,200 mg Tablet Extended Release 12hr 1,200 mg PO BID RF: 0 Discharge Orders: Discharge ED (Routine); Ordered 01/26/21 Ordered By: Carlitos Lopez Discharge Diet: Advance as tolerated Patient Instructions: Gastroenteritis (ED), Opioid Safety, Upper Respiratory Infection - Adult Activity Restrictions/Additional Instructions: You have been suffering from Covid and have had significant nausea and vomiting over the past couple days. We have given you IV fluids and you have improved a good amount. Please use the Zofran to help with your nausea and drink lots of fluids. Also by pulse oximeter at [facility] and monitor your oxygen levels frequently and at anytime you are feeling short of breath. If it dips to 90% please return to the ER immediately. Also return to the ER with any worsening or worrisome symptoms or if your fever does not go away. Follow-up with a primary care physician in a couple days to monitor improvement of your symptoms. Coding Level of Care Code ED Stitch Bonding Machine Drawer In for Faustino Fwjackie Exam Comprehensive
[2021-01-26] MEDS: iohexol 300 mg/mL 100 mL Btl IV (00:07)
--- NOTE | 2021-01-26 00:15 | CTR_ITS ---
PROCEDURE INFORMATION: Exam: CTA Chest With Contrast Exam date and time: 01/26/2021 12:15 AM Age: 40 years old Clinical indication: Cough and shortness of breath; Patient HX: Cough/sob. Covid +; Additional info: Sob/covid TECHNIQUE: Imaging protocol: Computed tomographic angiography of the chest with contrast. 3D rendering (Not supervised by radiologist): MIP and/or 3D reconstructed images were created by the technologist. Radiation optimization: All CT scans at this facility use at least one of these dose optimization techniques: automated exposure control; mA and/or kV adjustment per patient size (includes targeted exams where dose is matched to clinical indication); or iterative reconstruction. Contrast material: OMNI 350; Contrast volume: 56 ml; Contrast route: INTRAVENOUS (IV); COMPARISON: CR (CHEST, ) 01/25/2021 4:53 PM RADIATION DOSE METRICS: Total DLP (mGy-cm): 508.25 FINDINGS: Pulmonary arteries: No pulmonary embolism. Aorta: No aortic dissection. Lungs: Hazy bilateral pulmonary opacities which are consistent with COVID-19. Pleural spaces: Unremarkable. No pneumothorax. No pleural effusion. Heart: Unremarkable. No cardiomegaly. No pericardial effusion. Lymph nodes: Unremarkable. No enlarged lymph nodes. Liver: There is fatty infiltration of the liver. Stomach and bowel: Diverticulosis without diverticulitis. Bones/joints: Unremarkable. No acute fracture. Soft tissues: Unremarkable. CT/CT angio chest PE protcl [id number] IMPRESSION: 1. No pulmonary embolism. 2. Hazy bilateral pulmonary opacities which are consistent with COVID-19. 3. No aortic dissection. 4. Fatty infiltration of the liver. 5. Diverticulosis without diverticulitis. Radiation Dose CTDIVOL = (mGy): DLP = 508.25 (mGy-cm)
[2021-01-26] MEDS: iohexol 350 mg/mL 100 mL Btl IV (00:19)
[2021-01-26 00:28] VITALS: BP 103/68; PULSE 96; RESP 16; TEMP 37; O2SAT 95
[2021-01-26 01:15] VITALS: BP 131/80; PULSE 89; RESP 16; TEMP 37.6; O2SAT 94
[2021-01-26 02:57] VITALS: BP 118/73; PULSE 72; RESP 18; TEMP 37.3; O2SAT 97
== END 2021-01-26 02:59 | disposition home or self-care (01) ==
PROVIDERS: Family Medicine; Nurse Practitioner Family; Emergency Provider Emergency Medicine
DX: U07.1 COVID-19 (principal); K52.9 Noninfective gastroenteritis and colitis, unspecified
CPT/HCPCS: 71045; 71275; 74177; 80053; 81001; 83605; 83690; 85025; 87040; 87086; 96361; 96374; 96375; 99283; J1100; J2405; J7030; Q0144; Q9967

== ENCOUNTER 2021-01-28 17:15 | Emergency (ER) | payer SELFPAY ==
[2021-01-28 17:57] VITALS: BP 121/86; PULSE 95; RESP 24; TEMP 36.9; O2SAT 90; BMI 27.4
--- NOTE | 2021-01-28 18:33 | XRR_ITS ---
PROCEDURE INFORMATION: Exam: XR Chest Exam date and time: 01/28/2021 6:33 PM Age: 40 years old Clinical indication: Cough and shortness of breath; Additional info: SOB, cough, rash, covid + TECHNIQUE: Imaging protocol: XR of the chest. Views: 1 view. COMPARISON: CR (CHEST, ) 01/25/2021 4:53 PM FINDINGS: Lungs: Mild bilateral pulmonary opacities, left greater than right, most consistent with pneumonia. Pleural spaces: Unremarkable. No pleural effusion. No pneumothorax. Heart/Mediastinum: Unremarkable. No cardiomegaly. Bones/joints: Unremarkable. Other findings: Patient rotation to the left. XR/XR chest 1V portable [id number] IMPRESSION: Mild bilateral pulmonary opacities, left greater than right, most consistent with pneumonia.
[2021-01-28 21:20] LABS: Basophils % 0.2 %; Eosinophils % 0.1 %; Hematocrit 49.3 % (42.0-52.0); Hemoglobin 16.5 g/dL (11.7-16.6); Lymphocytes # 1.7 10^3/uL (0.8-4.8); Lymphocytes % 21.1 %; Mean Corpuscular HGB Conc 33.5 g/dL (30.0-36.0); Mean Corpuscular Hemoglobin 28.2 pg (28.0-34.0); Mean Corpuscular Volume 84.3 fL (80-94); Mean Platelet Volume 9.2 fL (7.4-10.4); Monocytes # 1.2 10^3/uL (0.2-0.9); Monocytes % 15.5 %; Neutrophils % 62.4 %; Nucleated Red Blood Cells % 0 %; Platelet Count 353 10^3/cmm (130-400); Red Blood Count 5.85 10^6/uL (4.1-5.3); Red Cell Distribution Width 11.8 % (12.1-15.1)
[2021-01-28 21:36] LABS: Lactic Sepsis W/Reflex 1.2 mmol/L (0.5-2.2)
[2021-01-28 21:49] LABS: Alanine Aminotransferase 88 U/L (0-41); Albumin Level 3.8 g/dL (3.5-5.2); Alkaline Phosphatase 62 IU/L (40-130); Anion Gap 14.6 (5-19); Aspartate Amino Transferase 58 U/L (0-40); Blood Urea Nitrogen 14 mg/dL (6-20); Calcium 8.3 mg/dL (8.5-10.5); Carbon Dioxide 24 mmol/L (22-29); Chloride 97 mmol/L (98-107); Globulin 3.3 g/dL (1.3-4.6); Glomerular Filtration Rate 150.8 mL/min (90-130); Glucose 85 mg/dL (65-115); Osmolality Calculated 274 mOsm/kg (285-295); Potassium 3.6 mmol/L (3.5-5.1); Sodium 132 mmol/L (136-145); Total Bilirubin 1.1 mg/dL (0.15-1.2); Total Protein 7.1 g/dL (6.6-8.7)
[2021-01-28 21:51] LABS: Slide Review Slide Review Perform
[2021-01-28 23:47] VITALS: BP 126/84; PULSE 90; RESP 18; O2SAT 93
[2021-01-28 23:48] VITALS: O2SAT 93
--- NOTE | 2021-01-28 23:49 | W.ED.COVID ---
HPI - COVID General: Chief Complaint: COVID symptoms Stated Complaint: SOb, Rash on legs, COVID +, low o2 Time Seen by Provider: 01/28/21 23:49 Triage information: No fever, cough or shortness of breath. No known COVID + exposure last 14 days History of Present Illness: HPI Narrative: 40-year-old male patient [facility] with complaints of shortness of breath and fatigue. Patient has been recently diagnosed with COVID-19 yesterday. Patient was started on azithromycin and methylprednisone. Patient comes in today due to having a rash which is spouse think is secondary to the antibiotic. Patient appears unwell but not toxic. COVID 19 common symptoms: positive dyspnea and fatigue COVID Results: SARS-CoV-2 Antigen (Rapid) Positive (Negative) H 01/20/21 22:42 01/20/21 Review of Systems General: Reports: 10 or more systems reviewed and unremarkable except in HPI and below Const: Reports: fatigue Resp: Reports: dyspnea Physical Exam Const: COMMON NORMALS: no acute distress and patient oriented x3 GENERAL APPEARANCE: cooperative HENMT: COMMON NORMALS: normocephalic and Normal external nose present HEAD & SCALP: normal to inspection and normocephalic NOSE: Normal external nose present MOUTH: Normal oral and palatal mucosa present Eye: GENERAL EYE: appearance normal, both eyes and all related structures Neck/C-Spine: COMMON NORMALS: full ROM Lymph: LYMPHATIC: no lymphadenopathy noted Chest: COMMONS NORMALS: normal inspection of the chest Resp: COMMON NORMALS: normal respiratory effort EFFORT & INSPECTION: Yes able to speak in complete sentences and Yes tachypneic AUSCULTATION: crackles Laterality: bilateral Cardio: COMMON NORMALS: regular rate and regular rhythm RATE: regular rate RHYTHM: regular rhythm GI: COMMON NORMALS: non-tender Back/Pelvis: COMMON NORMALS: thoracic and lumbar spine normal to inspection Extremity: COMMON NORMALS: normal to inspection Neuro: COMMON NORMALS: patient oriented x3 and moves all extremities Psych: COMMON NORMALS: mental status grossly normal and cooperative Skin: COMMON NORMALS: no rashes or lesions noted GENERAL SKIN EXAM: no rashes or lesions noted Course Vital Signs: Vital signs: Vital Signs Temperature 98.5 F 01/28/21 17:57 Pulse Rate 72 01/29/21 01:00 Respiratory Rate 18 01/28/21 23:47 Blood Pressure 126/84 01/28/21 23:47 Pulse Oximetry 95 01/29/21 01:00 MDM - COVID MDM Narrative: Medical decision making narrative: 40-year-old male patient comes in today with shortness of breath and tachypnea. Patient was recently diagnosed with COVID-19 and reports worsening symptoms. On exam patient has decreased breath sounds with crackles throughout. Vital signs are normal except for a pulse oxygen of 90% on room air at rest and a respiratory rate of 28-30. Differential diagnosis includes respiratory failure, Covid pneumonia, dehydration. I recommended patient stop the azithromycin and methylprednisone to the rash. We will not restart antibiotic as this is not necessary in a viral pneumonia. Patient was given diphenhydramine due to the rash itching. I recommended patient go on dexamethasone 6 mg twice daily for his pneumonia. Patient was given IV fluids and will continue with home oxygen support. Patient was agreeable to plan along with female significant other. Lab Data: Labs: Lab Results 01/28/21 01/28/21 01/28/21 Range/Units 21:11 21:11 21:11 WBC 8.0 (4.0-10.0) 10^3/ uL RBC 5.85 H (4.1-5.3) 10^6/u L Hgb 16.5 (11.7-16.6) g/dL Hct 49.3 (42.0-52.0) % MCV 84.3 (80-94) fL MCH 28.2 (28.0-34.0) pg MCHC 33.5 (30.0-36.0) g/dL RDW 11.8 L (12.1-15.1) % Plt Count 353 (130-400) 10^3/c mm MPV 9.2 (7.4-10.4) fL Neut % (Auto) 62.4 % Lymph % (Auto) 21.1 % [place] % (Auto) 15.5 % Eos % (Auto) 0.1 % Baso % (Auto) 0.2 % Neut # (Auto) 5.00 (1.8-7.7) 10^3/u L Lymph # (Auto) 1.7 (0.8-4.8) 10^3/u L [place] # (Auto) 1.2 H (0.2-0.9) 10^3/u L Eos # (Auto) 0.0 (0.0-0.8) 10^3/u L Baso # (Auto) 0.0 (0.0-0.1) 10^3/u L Nucleated RBC % (a uto) 0 % Nucleated RBCs # 0.0 /100WBC Sodium 132 L (136-145) mmol/L Potassium 3.6 (3.5-5.1) mmol/L Chloride 97 L (98-107) mmol/L Carbon Dioxide 24 (22-29) mmol/L Anion Gap 14.6 (5-19) BUN 14 (6-20) mg/dL Creatinine 0.6 L (0.7-1.2) mg/dL GFR Calculation 150.8 H (90-130) mL/min Glucose 85 (65-115) mg/dL Calculated Osmolal ity 274 L (285-295) mOsm/k g Lactic Acid 1.2 (0.5-2.2) mmol/L Calcium 8.3 L (8.5-10.5) mg/dL Total Bilirubin 1.1 (0.15-1.2) mg/dL AST 58 H (0-40) U/L ALT 88 H (0-41) U/L Alkaline Phosphata se 62 (40-130) IU/L C-Reactive Protein 16.0 H (0.0-4.9) mg/L Total Protein 7.1 (6.6-8.7) g/dL Albumin 3.8 (3.5-5.2) g/dL Globulin 3.3 (1.3-4.6) g/dL COVID Results: SARS-CoV-2 Antigen (Rapid) Positive (Negative) H 01/20/21 22:42 01/20/21 Discharge Plan Discharge Patient Disposition: Home Clinical Impression: Pneumonia due to 2019 novel coronavirus Adverse drug reaction Qualifiers: Encounter type: initial encounter Qualified Code(s): T50.905A - Adverse effect of unspecified drugs, medicaments and biological substances, initial encounter Condition: Stable Prescriptions: New dexamethasone 6 mg tablet 6 mg PO BID Qty: 10 RF: 0 No Action Vicks NyQuil 12.0-27-38-1000 mg Packet See Rx Instructions .ROUTE .COMPLEX RF: 0 Tylenol Extra Strength 500 mg Tablet 500 - 1,000 mg PO Q6H PRN (Reason: PAIN/FEVER) RF: 0 Mucinex 1,200 mg Tablet Extended Release 12hr 1,200 mg PO BID RF: 0 azithromycin 250 mg tablet 250 mg PO DAILY 4 Days Qty: 4 RF: 0 Zofran 4 mg tablet 4 mg PO Q8H PRN (Reason: Nausea And Vomiting) 5 Days Qty: 15 RF: 0 Medrol (Timo) 4 mg tablets,dose pack See Rx Instructions .ROUTE .COMPLEX Qty: 21 RF: 0 albuterol sulfate 90 mcg/actuation HFA aerosol inhaler 2 inh inhalation Q6H PRN (Reason: shortness of breath or wheezing) 30 Days RF: 0 Discharge Orders: Discharge ED (Routine); Ordered 01/29/21 Ordered By: Jignesh Duron Other Ambulatory Orders: DME: Oxygen (Order) Location: None Selected Ordered By: Jignesh Duron Patient Instructions: Opioid Safety Activity Restrictions/Additional Instructions: Stop azithromycin and methylprednisone. Use diphenhydramine, Benadryl, 1 tablet every 4-6 hours as needed for itching and rash. Drink plenty of water. Use dexamethasone 6 mg twice a day for the next 5 days. Use oxygen as needed for shortness of breath and difficulty breathing. Monitor oxygen saturation. Continue with albuterol inhaler 2 puffs every 4 hours as needed for wheezing, cough, shortness of breath. Return to the emergency department as needed. Coding Level of Care Code ED General Superintendent for Faustino Guzmán
[2021-01-29] MEDS: sodium chloride 0.9% 1,000 ML 999 ML IV (00:52)
[2021-01-29 01:00] VITALS: PULSE 72; O2SAT 95
[2021-01-29] MEDS: diphenhydrAMINE 50 mg/mL SDV 1mL 25 MG IVP (01:22)
[2021-01-29] MEDS: dexamethasone 10 mg/mL INJ 6 MG IVP (01:25)
[2021-01-29] MEDS: ketorolac 30 mg/mL INJ 15 MG IVP (01:26)
[2021-01-29 03:24] VITALS: BP 126/86; PULSE 67; RESP 20; O2SAT 95
== END 2021-01-29 03:00 | disposition home or self-care (01) ==
PROVIDERS: Emergency Medicine; Emergency Provider Nurse Practitioner Family
DX: U07.1 COVID-19 (principal); J12.82 Pneumonia due to coronavirus disease 2019; T36.95XA Adverse effect of unspecified systemic antibiotic, initial encounter
CPT/HCPCS: 71045; 80053; 83605; 85025; 86140; 96361; 96374; 96375; 99284; J1100; J1200; J1885; J7030

== ENCOUNTER 2021-06-10 13:03 | Emergency (ER) | payer SELFPAY ==
[2021-06-10 13:39] VITALS: BP 140/88; PULSE 60; RESP 18; TEMP 36.8; O2SAT 98; BMI 31.6
[2021-06-10 14:01] LABS: Basophils # 0.1 10^3/uL (0.0-0.1); Basophils % 0.6 %; Eosinophils # 0.1 10^3/uL (0.0-0.8); Eosinophils % 0.8 %; Hematocrit 47.5 % (42.0-52.0); Hemoglobin 16.5 g/dL (11.7-16.6); Lymphocytes # 1.9 10^3/uL (0.8-4.8); Lymphocytes % 24.2 %; Mean Corpuscular HGB Conc 34.7 g/dL (30.0-36.0); Mean Corpuscular Hemoglobin 28.9 pg (28.0-34.0); Mean Corpuscular Volume 83.2 fl (80-94); Mean Platelet Volume 9.7 fL (7.4-10.4); Monocytes % 13.1 %; Neutrophils # 4.79 10^3/uL (1.8-7.7); Neutrophils % 61.2 %; Nucleated Red Blood Cells % 0 %; Platelet Count 299 10^3/cmm (130-400); Red Blood Count 5.71 10^6/uL (4.1-5.3); Red Cell Distribution Width 11.9 % (12.1-15.1); White Blood Count 7.8 10^3/uL (4.0-10.0)
[2021-06-10 14:28] LABS: Add Urine Microscopic? YES; Bilirubin Urine Neg (Negative); Blood Urine 3+ (Negative); Glucose Urine UA Norm (Normal); Ketones Urine Negative (Negative); Leukocyte Esterase Urine Negative (Negative); Nitrate Urine Negative (Negative); Protein Urine Neg (Negative); Specific Gravity, Urine 1.015 (1.005-1.030); Urine Appearance Clear (CLEAR); Urine Color Yellow (Yellow); Urobilinogen Urine Norm (Negative); pH Urine 5 (5-7)
[2021-06-10 14:29] LABS: Add Urine Culture? No; Bacteria Urine TRACE /hpf; Mucus Urine 1+ /hpf; Squamous Epithelial Cell Urine 0-4 /hpf (0-5); WBC Urine 0-4 /hpf (0-5)
[2021-06-10 14:36] LABS: Alanine Aminotransferase 118 U/L (0-41); Albumin Level 4.6 g/dL (3.5-5.2); Alkaline Phosphatase 73 IU/L (40-130); Anion Gap 17.8 (5-19); Aspartate Amino Transferase 52 U/L (0-40); Blood Urea Nitrogen 11 mg/dL (6-20); Calcium 8.4 mg/dL (8.5-10.5); Carbon Dioxide 19 mmol/L (22-29); Chloride 104 mmol/L (98-107); Globulin 2.6 g/dL (1.3-4.6); Glomerular Filtration Rate 186.1 mL/min (90-130); Glucose 96 mg/dL (65-115); Osmolality Calculated 283 mOsm/kg (285-295); Potassium 3.8 mmol/L (3.5-5.1); Sodium 137 mmol/L (136-145); Total Protein 7.2 g/dL (6.6-8.7)
[2021-06-10 14:39] VITALS: BP 141/96; PULSE 65; RESP 16; TEMP 36.8; O2SAT 98
--- NOTE | 2021-06-10 14:48 | CT_ITS ---
WS: [id number] CT ABDOMEN PELVIS TECHNIQUE: Noncontrast CT of the abdomen and pelvis with coronal and sagittal reformatted images. CLINICAL INFORMATION: R lower abdominal pain COMPARISON: CT January 26, 2021 DLP: 1406.[address] scans at [facility] use at least one of these dose optimization techniques: automated e xposure control; mA and/or kV adjustment per patient size (includes targeted exams where dose is matc hed to clinical indication); or iterative reconstruction. FINDINGS: Hepatomegaly diffuse fatty infiltration liver. Noncontrast gallbladder is normal. Normal GE junction. Lung bases are well aerated. Noncontrast spleen is normal. Normal adrenal glands. Mild right pelvocaliectasis and ureterectasis with obstructing right proximal ureteral calculus measu ring 3 mm. Distal right ureter is decompressed. No hydronephrosis in the left kidney. Normal caliber abdominal aorta. Small fat-containing umbilical hernia. Normal sigmoid colon. Normal appendix in the right lower quadrant. CT/CT kidney stone 45209 IMPRESSION: 1. Obstructing right proximal ureteral calculus measuring 3 mm with mild right pelvocaliectasis and ureterectasis. 2. No obstructing left-sided renal or ureteral calculi. 3. Hepatomegaly with diffuse fatty infiltration liver. Notified AAKASH Guerrero at 06/10/2021 3:50 PM.
--- NOTE | 2021-06-10 14:48 | W.ED.ABDPA2 ---
HPI - Abdominal Pain General: Chief Complaint: Abdominal Pain Stated Complaint: RLQ ABD PAIN Time Seen by Provider: 06/10/21 14:40 Source: patient Mode of arrival: ambulatory Limitations: no limitations History of Present Illness: HPI narrative: Patient is a 40-year-old male who presents to ED today with complaint of right lower quadrant pain that began gradually approximately 5 days ago. He states pain is intermittent but over the course of the last 5 days it has progressively worsened in intensity. He is not having any nausea, vomiting, changes in bowel movements. He denies urinary symptoms. He does report a history of kidney stones but denies flank pain. No fevers, chills, body aches. MD elicited complaint: abdominal pain Onset (ago): day(s) Pain Consistency: intermittent Location: RLQ Radiation: none Migration to: no migration Associated Symptoms: Denies belching, change in bowel habits, change in stool character, chills, diarrhea, dysuria, fever(s), heartburn, hematochezia, hematemesis, melena, nausea and vomiting Review of Systems Const: Denies: fever(s), chills, body aches, fatigue or malaise Card: Denies: chest pain Resp: Denies: dyspnea GI: Reports: abdominal pain; Denies: nausea, vomiting, hematemesis, heartburn, diarrhea, belching, change in bowel habits, rectal pain, change in stool character, hematochezia or melena : Denies: flank pain, difficulty urinating, dysuria, urinary frequency, urinary urgency or urinary hesitancy Musc: Denies: neck pain or back pain Skin/Breast: Denies: rash Neuro: Denies: headache(s) Physical Exam Const: COMMON NORMALS: no acute distress, patient oriented x3, no limitations and alert NUTRITIONAL APPEARANCE: overweight ORIENTATION/CONSCIOUSNESS: Yes awake, Yes oriented to person, Yes oriented to place and Yes oriented to time HENMT: COMMON NORMALS: normocephalic and atraumatic HEAD & SCALP: normocephalic and atraumatic Resp: COMMON NORMALS: normal respiratory effort and clear to auscultation bilaterally AUSCULTATION: clear to auscultation bilaterally Cardio: COMMON NORMALS: regular rate and regular rhythm RATE: regular rate RHYTHM: regular rhythm GI: COMMON NORMALS: Normal to inspection, nondistended, normoactive bowel sounds present, Soft to palpation, No hepatosplenomegaly present and no masses INSPECTION: Yes normal to inspection PALPATION: Yes Soft to palpation, Yes Tenderness to palpation present (GI) Details: RLQ and Yes No hepatosplenomegaly present : COMMON NORMALS: Yes no CVA tenderness BLADDER/KIDNEY EXAM: Yes no CVA tenderness Back/Pelvis: COMMON NORMALS: no CVA tenderness Extremity: COMMON NORMALS: normal to inspection GENERAL: Yes normal exam except as noted Neuro: COMMON NORMALS: patient oriented x3 SENSORIUM/ORIENTATION: Yes alert, Yes oriented to person, Yes oriented to place and Yes oriented to time Skin: COMMON NORMALS: no rashes or lesions noted GENERAL SKIN EXAM: no rashes or lesions noted Course Vital Signs: Vital signs: Vital Signs Temperature 98.3 F 06/10/21 14:39 Pulse Rate 65 06/10/21 14:39 Respiratory Rate 16 06/10/21 14:39 Blood Pressure 141/96 06/10/21 14:39 Pulse Oximetry 98 06/10/21 14:39 MDM - Abdominal Pain MDM Narrative: Medical decision making narrative: Patient appears in no acute distress. His vital signs are stable. Blood work is unremarkable. He has chronic mild elevations to his LFTs. UA with hematuria but without evidence for infection. CT abdomen/pelvis shows a 3mm right proximal ureter stone with minimal hydro. Patient will be given urinary strainer and we will have him follow-up with Dr. Jackson. Strict return to ED precautions given. Lab Data: Labs: Lab Results 06/10/21 06/10/21 06/10/21 13:45 13:45 13:45 WBC 7.8 10^3/uL 10^3/ uL (4.0-10.0) RBC 5.71 10^6/uL H 10 ^6/uL (4.1-5.3) Hgb 16.5 g/dL g/dL (11.7-16.6) Hct 47.5 % % (42.0-52.0) MCV 83.2 fl fl (80-94) MCH 28.9 pg pg (28.0-34.0) MCHC 34.7 g/dL g/dL (30.0-36.0) RDW 11.9 % L % (12.1-15.1) Plt Count 299 10^3/cmm 10^3 /cmm (130-400) MPV 9.7 fL fL (7.4-10.4) Neut % (Auto) 61.2 % % Lymph % (Auto) 24.2 % % [place] % (Auto) 13.1 % % Eos % (Auto) 0.8 % % Baso % (Auto) 0.6 % % Neut # (Auto) 4.79 10^3/uL 10^3 /uL (1.8-7.7) Lymph # (Auto) 1.9 10^3/uL 10^3/ uL (0.8-4.8) [place] # (Auto) 1.0 10^3/uL H 10^ 3/uL (0.2-0.9) Eos # (Auto) 0.1 10^3/uL 10^3/ uL (0.0-0.8) Baso # (Auto) 0.1 10^3/uL 10^3/ uL (0.0-0.1) Nucleated RBC % (a uto) 0 % % Nucleated RBCs # 0.0 /100WBC /100W BC Sodium 137 mmol/L mmol/L (136-145) Potassium 3.8 mmol/L mmol/L (3.5-5.1) Chloride 104 mmol/L mmol/L (98-107) Carbon Dioxide 19 mmol/L L mmol/ L (22-29) Anion Gap 17.8 (5-19) BUN 11 mg/dL mg/dL (6-20) Creatinine 0.5 mg/dL L mg/dL (0.7-1.2) GFR Calculation 186.1 mL/min H mL /min (90-130) Glucose 96 mg/dL mg/dL (65-115) Calculated Osmolal ity 283 mOsm/kg L mOs m/kg (285-295) Calcium 8.4 mg/dL L mg/dL (8.5-10.5) Total Bilirubin 1.0 mg/dL mg/dL (0.15-1.2) AST 52 U/L H U/L (0-40) ALT 118 U/L H U/L (0-41) Alkaline Phosphata se 73 IU/L IU/L (40-130) Total Protein 7.2 g/dL g/dL (6.6-8.7) Albumin 4.6 g/dL g/dL (3.5-5.2) Globulin 2.6 g/dL g/dL (1.3-4.6) Urine Color Yellow (Yellow) Urine Appearance Clear (CLEAR) Urine pH 5 (5-7) Ur Specific Gravit y 1.015 (1.005-1.030) Urine Protein Neg (Negative) Urine Glucose (UA) Norm (Normal) Urine Ketones Negative (Negative) Urine Blood 3+ H (Negative) Urine Nitrate Negative (Negative) Urine Bilirubin Neg (Negative) Urine Urobilinogen Norm mg/dL mg/dL (Negative) Ur Leukocyte Celia ase Negative (Negative) Urine RBC 10-15 /hpf H /hpf (0-2) Urine WBC 0-4 /hpf H /hpf (0-5) Ur Squamous Epith Cells 0-4 /hpf H /hpf (0-5) Amorphous Sediment Not Reportable Urine Bacteria Trace /hpf /hpf (NONE) Urine Mucus 1+ /hpf /hpf Imaging Data ^: CT Abd/Pel: Radiologist's impression: [place] [address] CT Scan Report Signed Patient: Kurt Cohen Unit #: [id number] : [id number] Age/Sex: 40 / M ADM Date: 06/10/21 Loc: ER Room/Bed: Attending Dr: Ordering Provider/Ordering MD: Ashley Melchor Date of Service: 06/10/21 Procedure(s): CT kidney stone [id number] Accession Number(s): [id number] Report Number: [id number] WS: [id number] CT ABDOMEN PELVIS TECHNIQUE: Noncontrast CT of the abdomen and pelvis with coronal and sagittal reformatted images. CLINICAL INFORMATION: R lower abdominal pain COMPARISON: CT January 26, 2021 DLP: 1406.[address] scans at [facility] use at least one of these dose optimization techniques: automated exposure control; mA and/or kV adjustment per patient size (includes targeted exams where dose is matched to clinical indication); or iterative reconstruction. FINDINGS: Hepatomegaly diffuse fatty infiltration liver. Noncontrast gallbladder is normal. Normal GE junction. Lung bases are well aerated. Noncontrast spleen is normal. Normal adrenal glands. Mild right pelvocaliectasis and ureterectasis with obstructing right proximal ureteral calculus measuring 3 mm. Distal right ureter is decompressed. No hydronephrosis in the left kidney. Normal caliber abdominal aorta. Small fat-containing umbilical hernia. Normal sigmoid colon. Normal appendix in the right lower quadrant. CT/CT kidney stone [id number] IMPRESSION: 1. Obstructing right proximal ureteral calculus measuring 3 mm with mild right pelvocaliectasis and ureterectasis. 2. No obstructing left-sided renal or ureteral calculi. 3. Hepatomegaly with diffuse fatty infiltration liver. Notified AAKASH Guerrero at 06/10/2021 3:50 PM. Dictated By: Edgardo Fraga MD Signed By: Edgardo Fraga MD Signed Date/Time: 06/10/211553 DD/ 46 Discharge Plan Discharge Patient Disposition: Home Clinical Impression: Calculus of proximal right ureter Condition: Stable Prescriptions: New hydrocodone-acetaminophen 5-325 mg tablet 1 tab PO Q6H PRN (Reason: pain) Qty: 14 RF: 0 Zofran 4 mg tablet 4 mg PO Q6H PRN (Reason: nausea and vomiting) Qty: 14 RF: 0 Flomax 0.4 mg capsule 0.4 mg PO DAILY Qty: 10 RF: 0 No Action dexamethasone 6 mg tablet 6 mg PO BID Qty: 10 RF: 0 Vicks NyQuil 12.6-02-52-1000 mg Packet See Rx Instructions .ROUTE .COMPLEX RF: 0 Tylenol Extra Strength 500 mg Tablet 500 - 1,000 mg PO Q6H PRN (Reason: PAIN/FEVER) RF: 0 Mucinex 1,200 mg Tablet Extended Release 12hr 1,200 mg PO BID RF: 0 Medrol (Timo) 4 mg tablets,dose pack See Rx Instructions .ROUTE .COMPLEX Qty: 21 RF: 0 Discharge Orders: Discharge ED (Routine); Ordered 06/10/21 Ordered By: Ashley Melchor Patient Instructions: Ureteral Stones (ED) Activity Restrictions/Additional Instructions: As we discussed we will have case management set you up with urology for further evaluation/treatment. You needs to return to the emergency department for worsening or uncontrollable pain, repetitive episodes of vomiting, fevers greater than 100.4, inability to urinate, or any other concerns you may have. I hope you begin to feel better soon. Coding Level of Care Code ED Perioperative Educator for Chg Fwd Exam Comprehensive
--- NOTE | 2021-06-11 08:20 | DCPLANNER ---
renewable energy project manager had message to schedule a follow up appointment for patient with Dr. Jackson. renewable energy project manager sent message to Constantin Barber and Emily at Dr. Womack office using task message. Patients information will be printed and reviewed. Clinic will call patient with appointment information.
--- NOTE | 2021-06-13 07:49 | DCPLANNER ---
Patient had an appointment scheduled with Dr. Womack office - appointment was cancelled and this time and not rescheduled.
== END 2021-06-10 16:23 | disposition home or self-care (01) ==
PROVIDERS: Emergency Provider Physician Assistant
DX: N20.1 Calculus of ureter (principal)
CPT/HCPCS: 74176; 80053; 81001; 85025; 99283

== ENCOUNTER 2021-07-29 21:06 | Emergency (ER) | payer SELFPAY ==
[2021-07-29 21:22] VITALS: BP 154/109; PULSE 69; RESP 16; TEMP 37.1; O2SAT 98; BMI 31.4
[2021-07-29 23:40] LABS: Basophils % 0.4 %; Eosinophils % 0.2 %; Hematocrit 46.9 % (42.0-52.0); Hemoglobin 15.6 g/dL (11.7-16.6); Lymphocytes # 1.5 10^3/uL (0.8-4.8); Lymphocytes % 13.5 %; Mean Corpuscular HGB Conc 33.3 g/dL (30.0-36.0); Mean Corpuscular Hemoglobin 28.1 pg (28.0-34.0); Mean Corpuscular Volume 84.5 fl (80-94); Mean Platelet Volume 9.7 fL (7.4-10.4); Monocytes # 0.8 10^3/uL (0.2-0.9); Monocytes % 7.4 %; Neutrophils % 78.2 %; Nucleated Red Blood Cells % 0 %; Platelet Count 304 10^3/cmm (130-400); Red Blood Count 5.55 10^6/uL (4.1-5.3); Red Cell Distribution Width 12.1 % (12.1-15.1); White Blood Count 11.1 10^3/uL (4.0-10.0)
[2021-07-30 00:04] LABS: Alanine Aminotransferase 143 U/L (0-41); Albumin Level 4.7 g/dL (3.5-5.2); Alkaline Phosphatase 87 IU/L (40-130); Anion Gap 15.1 (5-19); Aspartate Amino Transferase 74 U/L (0-40); Blood Urea Nitrogen 13 mg/dL (6-20); Calcium 8.9 mg/dL (8.5-10.5); Carbon Dioxide 23 mmol/L (22-29); Chloride 105 mmol/L (98-107); Creatinine Clr Calc Pharmacy 149.0746; Globulin 3.1 g/dL (1.3-4.6); Glomerular Filtration Rate 126.2 mL/min (90-130); Glucose 135 mg/dL (65-115); Lipase 25 U/L (13-60); Osmolality Calculated 290 mOsm/kg (285-295); Potassium 4.1 mmol/L (3.5-5.1); Sodium 139 mmol/L (136-145); Total Bilirubin 1.1 mg/dL (0.15-1.2); Total Protein 7.8 g/dL (6.6-8.7)
--- NOTE | 2021-07-30 01:12 | ED_ITS ---
HPI - Abdominal Pain General: Chief Complaint: Abdominal Pain Stated Complaint: ABD Pain\N\Passing out Time Seen by Provider: 07/30/21 01:10 History of Present Illness: Patient is a 40-year-old male who comes to the ED with abdominal pain. Patient says symptoms started approximately 2 hours prior to arrival to the ED. Pain is located on the right side of the abdomen/right flank. He is also having nausea as well. He has a past medical history of kidney stones. Associated Symptoms: Denies chills, constipation, diarrhea, dysuria, fever(s), h ematochezia, hematuria, nausea and vomiting Review of Systems Const: Denies: fever(s), chills or fatigue Eyes: Denies: change in vision or eye discomfort ENMT: Denies: throat pain, odynophagia, nasal discharge or nasal congestion Card: Denies: chest pain, palpitations, edema, swelling of feet/ankles, dyspnea on exertion or orthopnea Resp: Denies: dyspnea, productive cough or non-productive cough GI: Denies: abdominal pain, nausea, vomiting, diarrhea, constipation or hemato chezia : Denies: flank pain, difficulty urinating, dysuria or hematuria Musc: Denies: neck pain, back pain or extremity swelling Skin/Breast: Denies: rash or new lesions Neuro: Denies: headache(s), numbness in extremities or weakness in extremities PFS ED PFSH: Medical History (Updated 07/30/21 @ 01:13 by AAKASH Dawson) Kidney stones No pertinent family history Physical Exam Const: COMMON NORMALS: patient oriented x3 HENMT: COMMON NORMALS: normocephalic HEAD & SCALP: normocephalic MOUTH: Normal oral and palatal mucosa present THROAT: posterior oropharynx normal and uvula midline Neck/C-Spine: COMMON NORMALS: supple GENERAL: Yes normal visual inspection Resp: COMMON NORMALS: normal respiratory effort, No retractions, No use of accessory muscles and clear to auscultation bilaterally AUSCULTATION: clear to auscultation bilaterally Cardio: COMMON NORMALS: regular rate, regular rhythm, S1 normal heart sound present, S2 normal heart sound present, No gallops present (Cardio), No clicks present (Cardio), No murmurs present (Cardio) and Peripheral pulses 2+ throughout RATE: regular rate RHYTHM: regular rhythm HEART SOUNDS: S1 normal heart sound present and S2 normal heart sound present PERIPHERAL PULSES: Peripheral pulses 2+ throughout GI: COMMON NORMALS: Normal to inspection, nondistended, normoactive bowel sounds present, Soft to palpation, non-tender and no masses PALPATION: Yes Soft to palpation : COMMON NORMALS: Yes no CVA tenderness BLADDER/KIDNEY EXAM: Yes no CVA tenderness Back/Pelvis: COMMON NORMALS: no CVA tenderness Neuro: COMMON NORMALS: patient oriented x3 GAIT: Yes Normal gait present Course Vital Signs: Vital signs: Vital Signs Temperature 98.7 F 07/29/21 21:22 Pulse Rate 69 07/29/21 21:22 Respiratory Rate 16 07/29/21 21:22 Blood Pressure 154/109 07/29/21 21:22 Pulse Oximetry 98 07/29/21 21:22 MDM - Abdominal Pain Lab Data : 07/29/21 23:34 07/29/21 23:34 Labs/Radiology: Laboratory Results WBC 11.1 10^3/uL (4.0-10.0) H 07/29/21 23:34 RBC 5.55 10^6/uL (4.1-5.3) H 07/29/21 23:34 Hgb 15.6 g/dL (11.7-16.6) 07/29/21 23:34 Hct 46.9 % (42.0-52.0) 07/29/21 23:34 MCV 84.5 fl (80-94) 07/29/21 23:34 MCH 28.1 pg (28.0-34.0) 07/29/21 23:34 MCHC 33.3 g/dL (30.0-36.0) 07/29/21 23:34 RDW 12.1 % (12.1-15.1) 07/29/21 23:34 Plt Count 304 10^3/cmm (130-400) 07/29/21 23:34 MPV 9.7 fL (7.4-10.4) 07/29/21 23:34 Neut % (Auto) 78.2 % 07/29/21 23:34 Lymph % (Auto) 13.5 % 07/29/21 23:34 [place] % (Auto) 7.4 % 07/29/21 23:34 Eos % (Auto) 0.2 % 07/29/21 23:34 Baso % (Auto) 0.4 % 07/29/21 23:34 Neut # (Auto) 8.70 10^3/uL (1.8-7.7) H 07/29/21 23:34 Lymph # (Auto) 1.5 10^3/uL (0.8-4.8) 07/29/21 23:34 [place] # (Auto) 0.8 10^3/uL (0.2-0.9) 07/29/21 23:34 Eos # (Auto) 0.0 10^3/uL (0.0-0.8) 07/29/21 23:34 Baso # (Auto) 0.0 10^3/uL (0.0-0.1) 07/29/21 23:34 Nucleated RBC % (auto) 0 % 07/29/21 23:34 Nucleated RBCs # 0.0 /100WBC 07/29/21 23:34 Sodium 139 mmol/L (136-145) 07/29/21 23:34 Potassium 4.1 mmol/L (3.5-5.1) 07/29/21 23:34 Chloride 105 mmol/L (98-107) 07/29/21 23:34 Carbon Dioxide 23 mmol/L (22-29) 07/29/21 23:34 Anion Gap 15.1 (5-19) 07/29/21 23:34 BUN 13 mg/dL (6-20) 07/29/21 23:34 Creatinine 0.7 mg/dL (0.7-1.2) 07/29/21 23:34 GFR Calculation 126.2 mL/min (90-130) 07/29/21 23:34 Glucose 135 mg/dL (65-115) H 07/29/21 23:34 Calculated Osmolality 290 mOsm/kg (285-295) 07/29/21 23:34 Calcium 8.9 mg/dL (8.5-10.5) 07/29/21 23:34 Total Bilirubin 1.1 mg/dL (0.15-1.2) 07/29/21 23:34 AST 74 U/L (0-40) H 07/29/21 23:34 ALT 143 U/L (0-41) H 07/29/21 23:34 Alkaline Phosphatase 87 IU/L (40-130) 07/29/21 23:34 Total Protein 7.8 g/dL (6.6-8.7) 07/29/21 23:34 Albumin 4.7 g/dL (3.5-5.2) 07/29/21 23:34 Globulin 3.1 g/dL (1.3-4.6) 07/29/21 23:34 Lipase 25 U/L (13-60) 07/29/21 23:34 Discharge Plan Discharge Condition: Stable Prescriptions: No Action dexamethasone 6 mg tablet 6 mg PO BID Qty: 10 0RF Vicks NyQuil 12.2-95-18-1000 mg Packet See Rx Instructions .ROUTE .COMPLEX 0RF Rx Instructions: 1 packet orally, DIRECTED ON BOX Tylenol Extra Strength 500 mg Tablet 500 - 1,000 mg PO Q6H PRN (Reason: PAIN/FEVER) 0RF Mucinex 1,200 mg Tablet Extended Release 12hr 1,200 mg PO BID 0RF Medrol (Timo) 4 mg tablets,dose pack See Rx Instructions .ROUTE .COMPLEX Qty: 21 0RF Rx Instructions: orally per package directions hydrocodone-acetaminophen 5-325 mg tablet 1 tab PO Q6H PRN (Reason: pain) Qty: 14 0RF Zofran 4 mg tablet 4 mg PO Q6H PRN (Reason: nausea and vomiting) Qty: 14 0RF Flomax 0.4 mg capsule 0.4 mg PO DAILY Qty: 10 0RF Coding Level of Care Code ED Animal Attendants And Trainers for Faustino Guzmán
--- NOTE | 2021-07-30 02:08 | CTR_ITS ---
PROCEDURE INFORMATION: Exam: CT Abdomen And Pelvis Without Contrast Exam date and time: 07/30/2021 2:08 AM Age: 40 years old Clinical indication: Abdominal pain; Flank; Right; Additional info: R flank pain TECHNIQUE: Imaging protocol: Computed tomography of the abdomen and pelvis without contrast. Radiation optimization: All CT scans at this facility use at least one of these dose optimization techniques: automated exposure control; mA and/or kV adjustment per patient size (includes targeted exams where dose is matched to clinical indication); or iterative reconstruction. COMPARISON: CT abdomen pelvis w con* [id number] 01/26/2021 12:07 AM RADIATION DOSE METRICS: Total DLP (mGy-cm): 1144.43 FINDINGS: Lungs: Atelectasis at the lung bases. Liver: There is diffuse low attenuation throughout the liver consistent with fatty infiltration. No masses. Gallbladder and bile ducts: Normal. No calcified stones. No ductal dilation. Pancreas: Normal. No ductal dilation. Spleen: Normal. No splenomegaly. Adrenal glands: Normal. No mass. Kidneys and ureters: There is a 3.2 mm stone in the mid right ureter causing moderate hydroureteronephrosis and perinephric inflammation. Stomach and bowel: Unremarkable. No obstruction. No mucosal thickening. Appendix: No evidence of appendicitis. Intraperitoneal space: Unremarkable. No free air. No significant fluid collection. Vasculature: Unremarkable. No abdominal aortic aneurysm. Lymph nodes: Unremarkable. No enlarged lymph nodes. Urinary bladder: Unremarkable as visualized. Reproductive: Unremarkable as visualized. Bones/joints: Unremarkable. No acute fracture. Soft tissues: Unremarkable. CT/CT kidney stone [id number] IMPRESSION: Mid right ureteral stone causing moderate hydroureteronephrosis. Fatty liver.
[2021-07-30 02:15] VITALS: RESP 17; O2SAT 98
[2021-07-30] MEDS: ondansetron 2 mg/ML SDV 2 mL 4 MG IVP (02:15)
[2021-07-30] MEDS: morphine 4 mg/mL SDV 1 mL IVP (02:15)
[2021-07-30] MEDS: sodium chloride 0.9% 1,000 ML 999 ML IV (02:15)
--- NOTE | 2021-07-30 02:20 | W.ED.ABDPA2 ---
HPI - Abdominal Pain General: Chief Complaint: Abdominal Pain Stated Complaint: ABD Pain\N\Passing out Time Seen by Provider: 07/30/21 01:10 Source: patient Mode of arrival: ambulatory Limitations: no limitations History of Present Illness: 40-year-old male states that roughly 16 hours ago he started having severe sharp right-sided flank pain he states pain was severe at first rated 10 out of 10 had nausea with it he states his pain is actually improved currently a 5 out of 10 he said a history of a kidney stone in the past states this feels similar. Denies any pain with touch denies any worsening improving factors denies any dysuria. Denies any radiation of his pain. Associated Symptoms: Reports nausea; Denies chills and fever(s) Review of Systems Const: Denies: fever(s), chills, body aches or change in appetite Eyes: Denies: blurry vision or eye discomfort ENMT: Denies: throat pain or dental pain Card: Denies: chest pain Resp: Denies: dyspnea GI: Reports: abdominal pain and nausea : Reports: flank pain Musc: Denies: neck pain or back pain Skin/Breast: Denies: rash Neuro: Denies: headache(s) Psych: Denies: depression Deng/Lymph: Denies: easy bruising All/Imm: Denies: urticaria PFSH ED PFSH: Medical History Kidney stones No pertinent family history Family History (Updated 07/30/21 @ 02:21 by Oksana Brooke MD) Denies family history of CAD (coronary artery disease) Physical Exam Const: COMMON NORMALS: no acute distress, patient oriented x3 and healthy appearing HENMT: COMMON NORMALS: normocephalic and atraumatic HEAD & SCALP: normocephalic and atraumatic Eye: COMMON NORMALS: Equal, round and reactive pupils present and EOMs intact bilaterally PUPIL: Yes Equal, round and reactive pupils present Neck/C-Spine: COMMON NORMALS: full ROM and supple Chest: COMMONS NORMALS: normal inspection of the chest and normal palpation of entire chest wall Resp: COMMON NORMALS: normal respiratory effort, No retractions, No use of accessory muscles and clear to auscultation bilaterally AUSCULTATION: clear to auscultation bilaterally Cardio: COMMON NORMALS: regular rate, regular rhythm and No murmurs present (Cardio) RATE: regular rate RHYTHM: regular rhythm GI: COMMON NORMALS: Normal to inspection, nondistended, normoactive bowel sounds present, Soft to palpation, non-tender and no masses PALPATION: Yes Soft to palpation Extremity: COMMON NORMALS: normal to inspection and full ROM Neuro: COMMON NORMALS: patient oriented x3, moves all extremities and no focal motor deficits Psych: COMMON NORMALS: mental status grossly normal, Normal thought process present and cooperative THOUGHT PROCESS: Normal thought process present Skin: COMMON NORMALS: no rashes or lesions noted and no wounds GENERAL SKIN EXAM: no rashes or lesions noted Course Vital Signs: Vital signs: Vital Signs Temperature 98.7 F 07/29/21 21: Pulse Rate 69 07/29/21 21: Respiratory Rate 17 07/30/21 02:15 Blood Pressure 154/109 07/29/21 21:22 Pulse Oximetry 98 07/30/21 02:15 MDM - Abdominal Pain Medical Decision Making Patient presents here with a kidney stone CT shows stone his pain is much improved will prescribe him pain meds for home he is to follow-up with urology outpatient return if worsening. Lab Data : 07/29/21 23:34 07/29/21 23:34 Labs/Radiology: Radiology Impressions Abdomen/Pelvis CT 07/30/21 02:08 IMPRESSION: Mid right ureteral stone causing moderate hydroureteronephrosis. Fatty liver. Laboratory Results WBC 11.1 10^3/uL (4.0-10.0) H 07/29/21 23:34 RBC 5.55 10^6/uL (4.1-5.3) H 07/29/21 23:34 Hgb 15.6 g/dL (11.7-16.6) 07/29/21 23:34 Hct 46.9 % (42.0-52.0) 07/29/21 23:34 MCV 84.5 fl (80-94) 07/29/21 23:34 MCH 28.1 pg (28.0-34.0) 07/29/21 23:34 MCHC 33.3 g/dL (30.0-36.0) 07/29/21 23:34 RDW 12.1 % (12.1-15.1) 07/29/21 23:34 Plt Count 304 10^3/cmm (130-400) 07/29/21 23:34 MPV 9.7 fL (7.4-10.4) 07/29/21 23:34 Neut % (Auto) 78.2 % 07/29/21 23:34 Lymph % (Auto) 13.5 % 07/29/21 23:34 [place] % (Auto) 7.4 % 07/29/21 23:34 Eos % (Auto) 0.2 % 07/29/21 23:34 Baso % (Auto) 0.4 % 07/29/21 23:34 Neut # (Auto) 8.70 10^3/uL (1.8-7.7) H 07/29/21 23:34 Lymph # (Auto) 1.5 10^3/uL (0.8-4.8) 07/29/21 23:34 [place] # (Auto) 0.8 10^3/uL (0.2-0.9) 07/29/21 23:34 Eos # (Auto) 0.0 10^3/uL (0.0-0.8) 07/29/21 23:34 Baso # (Auto) 0.0 10^3/uL (0.0-0.1) 07/29/21 23:34 Nucleated RBC % (auto) 0 % 07/29/21 23: Nucleated RBCs # 0.0 /100WBC 07/29/21 23:34 Sodium 139 mmol/L (136-145) 07/29/21 23:34 Potassium 4.1 mmol/L (3.5-5.1) 07/29/21 23:34 Chloride 105 mmol/L (98-107) 07/29/21 23:34 Carbon Dioxide 23 mmol/L (22-29) 07/29/21 23:34 Anion Gap 15.1 (5-19) 07/29/21 23:34 BUN 13 mg/dL (6-20) 07/29/21 23:34 Creatinine 0.7 mg/dL (0.7-1.2) 07/29/21 23:34 GFR Calculation 126.2 mL/min (90-130) 07/29/21 23:34 Glucose 135 mg/dL (65-115) H 07/29/21 23:34 Calculated Osmolality 290 mOsm/kg (285-295) 07/29/21 23:34 Calcium 8.9 mg/dL (8.5-10.5) 07/29/21 23:34 Total Bilirubin 1.1 mg/dL (0.15-1.2) 07/29/21 23:34 AST 74 U/L (0-40) H 07/29/21 23:34 ALT 143 U/L (0-41) H 07/29/21 23:34 Alkaline Phosphatase 87 IU/L (40-130) 07/29/21 23:34 Total Protein 7.8 g/dL (6.6-8.7) 07/29/21 23:34 Albumin 4.7 g/dL (3.5-5.2) 07/29/21 23:34 Globulin 3.1 g/dL (1.3-4.6) 07/29/21 23:34 Lipase 25 U/L (13-60) 07/29/21 23:34 Urine Color Yellow (Yellow) 07/29/21 22:10 Urine Appearance Clear (CLEAR) 07/29/21 22:10 Urine pH 5 (5-7) 07/29/21 22:10 Ur Specific [place] 1.025 (1.005-1.030) 07/29/21 22:10 Urine Protein Trace (Negative) 07/29/21 22:10 Urine Glucose (UA) Norm (Normal) 07/29/21 22:10 Urine Ketones Negative (Negative) 07/29/21 22:10 Urine Blood 3+ (Negative) H 07/29/21 22:10 Urine Nitrate Negative (Negative) 07/29/21 22:10 Urine Bilirubin Neg (Negative) 07/29/21 22:10 Urine Urobilinogen Norm mg/dL (Negative) 07/29/21 22:10 Ur Leukocyte Esterase Negative (Negative) 07/29/21 22:10 Urine RBC 40-50 /hpf (0-2) H 07/29/21 22:10 Urine WBC 0-4 /hpf (0-5) H 07/29/21 22:10 Ur Squamous Epith Cells 0-4 /hpf (0-5) H 07/29/21 22:10 Amorphous Sediment Not Reportable 07/29/21 22:10 Urine Bacteria Trace /hpf (NONE) 07/29/21 22:10 Urine Mucus 3+ /hpf 07/29/21 22:[address] Abd/Pel: I personally reviewed and interpreted this imaging study as follows: My impression: IMPRESSION: Mid right ureteral stone causing moderate hydroureteronephrosis. Fatty liver. Discharge Plan Discharge Patient Disposition: Home Clinical Impression: Calculus of kidney Condition: Stable Prescriptions: New hydrocodone-acetaminophen 5-325 mg tablet 1 tab PO Q6H PRN (Reason: pain) Qty: 14 0RF ondansetron 4 mg tablet,disintegrating 4 mg PO Q6H PRN (Reason: nausea and vomiting) Qty: 14 0RF Flomax 0.4 mg capsule 0.4 mg PO DAILY Qty: 4 0RF No Action dexamethasone 6 mg tablet 6 mg PO BID Qty: 10 0RF Vicks NyQuil 12.7-56-35-1000 mg Packet See Rx Instructions .ROUTE .COMPLEX 0RF Rx Instructions: 1 packet orally, DIRECTED ON BOX Tylenol Extra Strength 500 mg Tablet 500 - 1,000 mg PO Q6H PRN (Reason: PAIN/FEVER) 0RF Mucinex 1,200 mg Tablet Extended Release 12hr 1,200 mg PO BID 0RF Medrol (Timo) 4 mg tablets,dose pack See Rx Instructions .ROUTE .COMPLEX Qty: 21 0RF Rx Instructions: orally per package directions hydrocodone-acetaminophen 5-325 mg tablet 1 tab PO Q6H PRN (Reason: pain) Qty: 14 0RF Zofran 4 mg tablet 4 mg PO Q6H PRN (Reason: nausea and vomiting) Qty: 14 0RF Flomax 0.4 mg capsule 0.4 mg PO DAILY Qty: 10 0RF Discharge Orders: Discharge ED (Routine); Ordered 07/30/21 Ordered By: Oksana Brooke Referrals: Nickolas Jackson MD [Physician] - 1-3 days Discharge Diet: Advance as tolerated Discharge Activity: Resume usual activity Patient Instructions: Kidney Stones (ED), Opioid Safety Coding Level of Care Code ED Founder And Chief Executive Officer for Chg Fwd Exam Comprehensive
[2021-07-30 02:57] LABS: Add Urine Microscopic? YES; Bilirubin Urine Neg (Negative); Blood Urine 3+ (Negative); Glucose Urine UA Norm (Normal); Ketones Urine Negative (Negative); Leukocyte Esterase Urine Negative (Negative); Nitrate Urine Negative (Negative); Protein Urine Trace (Negative); Specific Gravity, Urine 1.025 (1.005-1.030); Urine Appearance Clear (CLEAR); Urine Color Yellow (Yellow); Urobilinogen Urine Norm (Negative); pH Urine 5 (5-7)
[2021-07-30 02:58] LABS: Add Urine Culture? Yes; Bacteria Urine TRACE /hpf; Mucus Urine 3+ /hpf; RBC Urine 40-50 /hpf (0-2); Squamous Epithelial Cell Urine 0-4 /hpf (0-5); WBC Urine 0-4 /hpf (0-5)
[2021-07-30 04:18] VITALS: RESP 19; O2SAT 95
[2021-07-30] MEDS: HYDROmorphone 1 mg/mL INJ 1 mL IVP (04:18)
[2021-07-30 04:19] VITALS: BP 155/92; PULSE 61; RESP 18; O2SAT 95
--- NOTE | 2021-07-30 07:51 | DCPLANNER ---
Addendum entered by Yaima Stubbs 08/23/21 12:11: Patient had a follow up appointment scheduled for 08.05.[address] Jackson - patient did attend appointment. Addendum entered by Yaima Stubbs 08/02/21 13:09: Patient has a follow up appointment scheduled for Thursday, August 05, 2021 at 3:[address] Jackson. Clinic will call patient with appointment information. Original Note: manager core had message to schedule a follow up appointment for patient with Dr. Jackson. manager core emailed patients information to Constantin Barber and Julie at the office of Dr. Jackson. Clinic will call patient with appointment information.
== END 2021-07-30 04:26 | disposition home or self-care (01) ==
PROVIDERS: Emergency Provider Emergency Medicine
DX: N20.0 Calculus of kidney (principal); Z87.442 Personal history of urinary calculi
CPT/HCPCS: 36415; 74176; 80053; 81001; 83690; 85025; 87086; 96361; 96374; 96375; 99284; J1170; J2270; J2405; J7030

== ENCOUNTER 2021-08-05 13:45 | Outpatient (CLI) | payer SELFPAY ==
--- NOTE | 2021-08-05 13:56 | XR_ITS ---
WS: [id number] XR KUB [id number] REASON FOR EXAM: CALCULUS OF KIDNEY FINDINGS: Calculus overlying the right second sacral segment. This corresponds to a calculus in the distal righ t ureter demonstrated on CT to 07/18/2021. Position of the calculus is unchanged compared to the previ ous examination. No other urinary tract calculi are identified. No other significant abdominal abnormality. XR/XR KUB [id number] IMPRESSION: Distal right ureteral calculus location unchanged compared to CT scan of 07/30/19 22.
== END 2021-08-05 13:46 | disposition home or self-care (01) ==
LOC: RAD 13:50
PROVIDERS: Visit Provider Urology
DX: N20.0 Calculus of kidney (principal); N20.1 Calculus of ureter
CPT/HCPCS: 74018; 81003; 87635

== ENCOUNTER 2021-08-12 06:15 | Day surgery (SDC) | payer SELFPAY ==
[2021-08-09 14:36] VITALS: BMI 31.4
[2021-08-12] VITALS (8 sets, daily range): BP systolic 104–141; BP diastolic 63–98; PULSE 54–68; RESP 16–18; TEMP 36.2–36.3; O2SAT 97–100
--- NOTE | 2021-08-12 06:00 | W.PM.OPSUD ---
Surgery/Procedure H&P Update DATE OF PROCEDURE: August 12, 2021 DATE H&P PERFORMED: 08/05/21 H&P UPDATE INFORMATION: I have reviewed H&P completed within last 30 days, I have examined patient prior to procedure, No changes to prior documentation and H&[place] is [place] [facility] date indicated CHANGES TO PREVIOUS DOCUMENTATION: The right mid ureteral stone has progressed slightly. Still readily visible on KUB. Proceed with ESWL plus stent. No changes PRIMARY INDICATION FOR PROCEDURE: Refractory RIGHT ureteral stone PLANNED PROCEDURE: Operation Date: 08/12/21 07:50 Proposed Procedures p ESWL [id number]/n20.1/n22.0(Right) - Nickolas Jackson MD s Laser Lithotripsy(Right) - Nickolas Jackson MD s ureteroscopy(Right) - Nickolas Jackson MD s Ureteral Stent Placement(Right) - Nickolas Jackson MD
--- NOTE | 2021-08-12 06:22 | XR_ITS ---
WS: [id number] ABDOMEN KUB CLINICAL INFORMATION: Renal/ureteral calculi. COMPARISON: August 05, 2021 FINDINGS: Distal RIGHT 3.5 mm Ureteral calculus appears to have migrated slightly compared to previous project ed over the RIGHT sacrum. No other significant changes compared to previous. XR/XR KUB [id number] Impression: Distal RIGHT ureteral calculus appears to have migrated slightly compared to p revious projected over the RIGHT sacrum
[2021-08-12] MEDS: sodium chloride 0.9% 1,000 ML 30 ML IV (06:55)
[2021-08-12] MEDS: levofloxacin-dextrose 5 % 500 MG/100 ML PREMIX 100 MG IV (07:08)
--- NOTE | 2021-08-12 07:09 | PM.OP ---
Operative Report Date of procedure: August 12, 2021 Pre-op diagnosis: Preop Diagnosis Refractory right ureteral calculus Post-op diagnosis: Refractory right ureteral calculus Procedure done: 1. RIGHT extracorporeal shockwave lithotripsy right ureteral stone, no stent Pathology: None Surgeon: Manuel [employer] Derivatives Trader: Cristela: Lithotripsy cable installation technician Estimated blood loss: General Urine output: Not measured Complications: None Findings: 1. Stone readily identified with fluoroscopy and focused upon. 2000 shocks administered with excellent change. Stone no longer visualized at the completion of the procedure. No stent Brief History: Kurt is a very pleasant 40-year-old white male who was recently diagnosed with a right mid ureteral stone. He progressed slightly over time but he was having intermittent symptoms and minimal progression on serial KUBs and for that reason elected attempt at definitive therapy. Reviewed endoscopic versus ESWL and he chose the latter. We also reviewed stent versus no stent and it was decided to make that decision after treatment of the stone initially with ESWL. Procedure: After routine preoperative evaluation examination and obtaining of informed consent he was taken to the operating suite on 08/12/2021 where general anesthesia was administered without difficulty after appropriate timeout was performed, SCDs confirmed to be functioning, preoperative antibiotics administered, beta-ofelia protocol confirmed. Position on the Dornier unit such that the stone was located the focal point utilizing biplanar fluoroscopy with the shock and positioned anteriorly. The stone was readily identified and focused upon. Therapy was initiated at a rate of 70 and intensity of 1 with advancement to an intensity of 6. Rate advanced to 90 after notable change. Results: Shocks administered: 1999 Change identified: Could not see the stone after about 1500 shocks. Elected no stent placement because of that Position changes as needed based on real-time fluoroscopic imaging. He tolerated procedure well without complication and was awakened in the operating room and returned to the recovery room in stable condition. PLANS: 1. Anticipate discharge from outpatient surgery 2. Follow-up: 1 month with KUB 3. Strain all voids
[2021-08-12] MEDS: HYDROcodone-acetaminophen 5-325 mg Tablet 1 TAB PO (08:49)
--- NOTE | 2021-08-12 15:49 | ANE.PACU2 ---
Inpatient post-anesthesia follow up: Airway intact: Yes Vital signs: Temperature 97.2 F Pulse Rate 64 Respiratory Rate 17 Blood Pressure 131/81 Pulse Oximetry 100 Oxygen Delivery Me thod Room Air Oxygen Flow Rate 6 Fraction of Inspir ed Oxygen Hydration adequate: Yes Nausea and vomiting: No Pain level: 1 Mental status: Baseline
== END 2021-08-12 09:06 | disposition home or self-care (01) ==
PROVIDERS: Visit Provider Urology
PROC: (CPT 50590; principal; 2021-08-12 07:40)
DX: N20.1 Calculus of ureter (principal); Z87.891 Personal history of nicotine dependence
CPT/HCPCS: 50590; 74018; J1100; J1956; J2001; J2250; J2405; J2704; J3010; J3490; J7030

== ENCOUNTER 2022-10-06 21:35 | Emergency (ER) | payer SELFPAY ==
[2022-10-06 21:54] VITALS: BP 156/110; PULSE 83; RESP 17; TEMP 36.3; O2SAT 100; BMI 30.7
--- NOTE | 2022-10-06 22:39 | ED_ITS ---
HPI - Allergic Reaction General: Chief complaint: Allergic Reaction Stated complaint: allergic rxn Time Seen by Provider: 10/06/22 22:14 History of Present Illness: HPI narrative: 41-year-old male patient comes in today for complaints of persistent rash for 7 days. Patient last week had a was attributed to a viral illness with some runny nose and fever, since then patient developed a rash that has persisted for the last week. Patient reports some mild itching. Patient appears nontoxic. Patient appears in no acute distress. Review of Systems Const: Denies: fever(s) Card: Denies: chest pain Resp: Denies: dyspnea Musc: Denies: neck pain Skin/Breast: Reports: rash Neuro: Denies: headache(s) PFSH ED PFSH: Medical History Kidney stones No pertinent family history Right ureteral stone Family History Father Healthy adult Mother Healthy adult Denies family history of CAD (coronary artery disease) Social History Smoking and tobacco status: former smoker Alcohol intake: never Marital status: Single Current occupational status: employed Physical Exam Const: COMMON NORMALS: alert HENMT: HEAD & SCALP: normal to inspection Neck/C-Spine: COMMON NORMALS: full ROM Resp: COMMON NORMALS: normal respiratory effort Cardio: COMMON NORMALS: regular rate and regular rhythm RATE: regular rate RHYTHM: regular rhythm GI: COMMON NORMALS: Soft to palpation and non-tender PALPATION: Yes Soft to palpation : COMMON NORMALS: Yes no CVA tenderness BLADDER/KIDNEY EXAM: Yes no CVA tenderness Back/Pelvis: COMMON NORMALS: no CVA tenderness Extremity: COMMON NORMALS: full ROM Neuro: SENSORIUM/ORIENTATION: Yes alert Skin: RASHES: rashes noted (Maculopapular rash.) Course Vital Signs: Vital signs: Vital Signs Temperature 97.4 F L 10/06/22 21:54 Pulse Rate 93 10/06/22 22:48 Respiratory Rate 16 10/06/22 22:48 Blood Pressure 145/96 10/06/22 22:48 Pulse Oximetry 99 10/06/22 22:48 Oxygen Delivery Me thod 10/06/22 22:48 MDM - Allergic Reaction Medical Decision Making 41-year-old male patient comes in today for complaints of rash to the torso extending out onto his extremities. Rash started after a viral illness that had some runny nose and a fever. Rash has persisted since that time. Patient has been given some antihistamines with some relief but rash never completely goes away. Patient had a tick bite about 1 month ago. No reported fevers are noted at this time. Patient appears nontoxic. Patient appears in no acute distress. Differential diagnosis includes but not limited to viral exanthem, RMSF, urticaria. Laboratory values were unremarkable. I believe patient probably has a viral exanthem due to the prodrome nature of the viral illness prior to the breakout of rash. I reviewed this with the patient and his female significant other. I did reassure him that usually the rash takes 2 weeks for it to resolve. We did go ahead and do a tick panel to rule out that as a issue. Patient does not have a fever headache or other symptoms that may be suggestive of a tickborne illness and his liver enzymes were unremarkable. Patient cannot recall his childhood immunizations and is from [place] so it may be a common childhood rash such as measles or rubella that he has acquired. I recommended follow-up with primary care or return to the ER for worsening symptoms. Patient and female significant other reported understanding. Lab Data 10/06/22 22:10/06/22 Laboratory Results WBC 10.0 10^3/uL (4.0-10.0) 10/06/22: RBC 5.74 10^6/uL (4.1-5.3) H 10/06/22: Hgb 15.9 g/dL (11.7-16.6) 10/06/22: Hct 49.3 % (42.0-52.0) 10/06/22: MCV 85.9 fl (80-94) 10/06/22: MCH 27.7 pg (28.0-34.0) L 10/06/22: MCHC 32.3 g/dL (30.0-36.0) 10/06/22: RDW 11.8 % (12.1-15.1) L 10/06/22: Plt Count 329 10^3/cmm (130-400) 10/06/22: MPV 9.6 fL (7.4-10.4) 10/06/22: Neut % (Auto) 61.0 % 10/06/22: Lymph % (Auto) 28.3 % 10/06/22: [place] % (Auto) 9.3 % 10/06/22: Eos % (Auto) 1.0 % 10/06/22: Baso % (Auto) 0.2 % 10/06/22: Neut # (Auto) 6.11 10^3/uL (1.8-7.7) 10/06/22: Lymph # (Auto) 2.8 10^3/uL (0.8-4.8) 10/06/22: [place] # (Auto) 0.9 10^3/uL (0.2-0.9) 10/06/22: Eos # (Auto) 0.1 10^3/uL (0.0-0.8) 10/06/22: Baso # (Auto) 0.0 10^3/uL (0.0-0.1) 10/06/22: Nucleated RBC % (auto) 0 % 10/06/22 Nucleated RBCs # 0.0 /100WBC 10/06/22: Sodium 142 mmol/L (136-145) 10/06/22: Potassium 3.7 mmol/L (3.5-5.1) 10/06/22: Chloride 106 mmol/L (98-107) 10/06/22: Carbon Dioxide 25 mmol/L (22-29) 10/06/22: Anion Gap 14.7 (5-19) 10/06/22: BUN 14 mg/dL (6-20) 10/06/22: Creatinine 0.6 mg/dL (0.7-1.2) L 10/06/22: GFR Calculation 150.0 mL/min (90-130) H 10/06/22 22: Glucose 118 mg/dL (65-115) H 10/06/22: Calculated Osmolality 296 mOsm/kg (285-295) H 04/10/23 22:29 Calcium 9.2 mg/dL (8.5-10.5) 10/06/22 22:29 Total Bilirubin 0.8 mg/dL (0.15-1.2) 10/06/22 22:29 AST 26 U/L (0-40) 10/06/22 22: ALT 66 U/L (0-41) H 10/06/22 22:29 Alkaline Phosphatase 87 U/L (40-130) 10/06/22 22: Total Protein 7.3 g/dL (6.6-8.7) 10/06/22 22: Albumin 4.3 g/dL (3.5-5.2) 10/06/22: Globulin 3.0 g/dL (1.3-4.6) 10/06/22 22:29 Discharge Plan Discharge Patient Disposition: Home Clinical Impression: Viral exanthem, unspecified Condition: Stable Prescriptions: New hydroxyzine HCl 25 mg tablet 25 mg PO Q4H PRN (Reason: itching) Qty: 60 0RF No Action Flomax 0.4 mg capsule 0.4 mg PO DAILY Qty: 14 2RF hydrocodone-acetaminophen 5-325 mg tablet 1 tab PO Q6H PRN (Reason: pain) Qty: 14 0RF ondansetron HCl [Zofran] 4 mg tablet 4 mg PO Q6H PRN (Reason: nausea and vomiting) Qty: 14 0RF Discharge Orders: Discharge ED (Routine); Ordered 10/06/22 Ordered By: Jignesh Duron Discharge Diet: Usual diet Discharge Activity: Increase activity as tolerated Patient Instructions: Viral Exanthem (ED) Activity Restrictions/Additional Instructions: Home and rest. Drink plenty of water and fluids. Use hydroxyzine as needed for itching or rash. Most often rashes secondary to viral illnesses will have to run their course. Most of them resolve within 14 days. We have performed a tick panel to make sure that there is no sign of a tick borne illness such as [place] spotted fever. This usually is accompanied by fever and headache along with the rash. Follow-up with primary care in 2 to 3 days for recheck. Return to ER for worsening symptoms such as difficulty breathing, high fever, headache, or shortness of breath. Coding Level of Care Code ED Plate Put In Worker for Faustino Guzmán
[2022-10-06 22:48] VITALS: BP 145/96; PULSE 93; RESP 16; O2SAT 99
[2022-10-06 22:48] LABS: Basophils % 0.2 %; Eosinophils # 0.1 10^3/uL (0.0-0.8); Hematocrit 49.3 % (42.0-52.0); Hemoglobin 15.9 g/dL (11.7-16.6); Lymphocytes # 2.8 10^3/uL (0.8-4.8); Lymphocytes % 28.3 %; Mean Corpuscular HGB Conc 32.3 g/dL (30.0-36.0); Mean Corpuscular Hemoglobin 27.7 pg (28.0-34.0); Mean Corpuscular Volume 85.9 fl (80-94); Mean Platelet Volume 9.6 fL (7.4-10.4); Monocytes # 0.9 10^3/uL (0.2-0.9); Monocytes % 9.3 %; Neutrophils # 6.11 10^3/uL (1.8-7.7); Nucleated Red Blood Cells % 0 %; Platelet Count 329 10^3/cmm (130-400); Red Blood Count 5.74 10^6/uL (4.1-5.3); Red Cell Distribution Width 11.8 % (12.1-15.1)
[2022-10-06 23:09] LABS: Alanine Aminotransferase 66 U/L (0-41); Albumin Level 4.3 g/dL (3.5-5.2); Alkaline Phosphatase 87 U/L (40-130); Anion Gap 14.7 (5-19); Aspartate Amino Transferase 26 U/L (0-40); Blood Urea Nitrogen 14 mg/dL (6-20); Calcium 9.2 mg/dL (8.5-10.5); Carbon Dioxide 25 mmol/L (22-29); Chloride 106 mmol/L (98-107); Glucose 118 mg/dL (65-115); Osmolality Calculated 296 mOsm/kg (285-295); Potassium 3.7 mmol/L (3.5-5.1); Sodium 142 mmol/L (136-145); Total Bilirubin 0.8 mg/dL (0.15-1.2); Total Protein 7.3 g/dL (6.6-8.7)
[2022-10-06] MEDS: dexamethasone 10 mg/mL INJ IM (23:21)
[2022-10-06] MEDS: hyDROXYzine 25 mg Capsule 50 MG PO (23:21)
[2022-10-06 23:29] VITALS: BP 131/89; PULSE 77; RESP 16; O2SAT 99
[2022-10-08 13:49] LABS: Lyme AB Screen <0.90 index
[2022-10-13 17:30] LABS: E. Chaffeensis AB IGG <1:64; E. Chaffeensis AB IGM <1:20
--- NOTE | 2022-10-14 13:17 | DCPLANNER ---
senior branch manager called patient due to no primary care physician - no answer at this time
[2022-10-14 16:49] LABS: RMSF IGG NOT DETECTED; RMSF IGM NOT DETECTED
== END 2022-10-06 23:32 | disposition home or self-care (01) ==
PROVIDERS: Emergency Provider Nurse Practitioner Family
DX: B09 Unspecified viral infection characterized by skin and mucous membrane lesions (principal); Z87.891 Personal history of nicotine dependence
CPT/HCPCS: 80053; 85025; 86618; 86666; 86757; 96372; 99284; J1100